=== PATIENT | female | born 1945 | race Caucasian/White ===

== ENCOUNTER → 2016-12-06 | Outpatient (CLI) | payer OTHER ==
[~2016-12-06] MED LIST: APOA1CAP PO; CALC600T9 PO; CALCTAB5 PO; CHOL100010 PO; CHOL2000 PO; CITA40TA12 PO; CYAN10005 PO; GLUCTAB18 PO; KRIL1CAP3 PO; LEVO50TA6 PO; METO50TA7 PO; MULT-506 PO; PANT40TA PO; PROB1TAB16 PO; RIVA1TAB4 PO; VITA400C15 PO; VITATAB19 PO
[2016-12-06 09:36] LABS: BLOOD UREA NITROGEN 22 mg/dl (7-18); BUN/CREATININE RATIO 29.7 (10-20); CALCIUM 8.9 mg/dl (8.5-10.1); CARBON DIOXIDE 28 mmol/L (21-32); CHLORIDE 108 mmol/L (98-107); CREATININE 0.75 mg/dl (0.60-1.20); GLUCOSE 88 mg/dl (70-99); MAGNESIUM 2.2 mg/dl (1.8-2.4); POTASSIUM 4.1 mmol/L (3.5-5.1); SODIUM 143 mmol/L (136-145)
[2016-12-06 09:49] LABS: CHOLESTEROL 231 mg/dl (0-200); CHOLESTEROL/HDL RATIO 3.8; HDL CHOLESTEROL 61 mg/dl; LDL CHOLESTEROL CALCULATED 154 mg/dl; TRIGLYCERIDES 80 mg/dl (0-150); VERY LOW DENSITY LIPOPROT CALC 16 mg/dl
== END | disposition home or self-care (01) ==
LOC: C.LAB1850 07:04
PROVIDERS: ATTEND Internal Medicine
DX: I48.0 Paroxysmal atrial fibrillation (principal); E03.9 Hypothyroidism, unspecified

== ENCOUNTER → 2017-02-27 | Day surgery (SDC) | payer OTHER ==
[2017-02-20 12:18] VITALS: BMI 26.0
[~2017-02-27] VITALS: Ht 157.5 cm; Wt 65.9 kg
[~2017-02-27] MED LIST changes: -CALCTAB5 PO; -CHOL100010 PO; +SODIUM CHLORIDE 0.9% 500ML 500 ML IV ONE; -VITA400C15 PO; -VITATAB19 PO
[2017-02-27 10:18] VITALS: Ht 157.5 cm; Wt 65.9 kg
[2017-02-27 10:27] VITALS: TEMP 36.8
--- NOTE | 2017-02-27 10:55 | Endo History and Physical ---
History & Physical Date of Service: Feb 27, 2017. Chief Complaint: 10 YEAR FOLLOW UP Referring Physician: DR BURLESON History of Present Illness 71 yo CF who presents for screening colonoscopy. Past Surgical History Hx Cardiac Surgery: No Hx Internal Defibrillator: No Hx Pacemaker: No Hx Abdominal Surgery: Yes (SHMUEL BSO) Hx of Implantable Prosthesis: No Hx Post-Op Nausea and Vomiting: Yes Hx Cancer Surgery: No Hx Thoracic Surgery: No Hx Orthopedic: Yes (LT ANKLE FUSION, 2 LT/1 RT RCR, RT KNEE SCOPE) Hx Urinary Tract Surgery: No Family History None Social History Smoking Status: Never Smoker Hx Substance Use: No Hx Alcohol Use: Yes (QUIT 5 YEARS AGO) Allergies Coded Allergies: No Known Allergies (Unverified , 02/27/17) Current Medications Reported Home Medications Medications Dose Route/Sig Max Daily Dose Days Date Category Krill Oil 1 Cap Cap 1 Cap PO QAM 02/20/17 Reported Osteo Bi-Flex Regular Str (Glucosamine-Chondroitin) 1 Tab Tab 1 Tab PO QAM 02/20/17 Reported Calcium + D (Calcium Carbonate-Vitamin D) 1 Tab Tab 1 Tab PO QAM 02/20/17 Reported Probiotic (Probiotic Product) 1 Tab Tab 1 Tab PO QAM 02/20/17 Reported Vitamin D3 (Cholecalciferol) 2,000 Unit Cap 4 Cap PO QAM 02/20/17 Reported Multivitamin (Multivitamins) Tab 1 Tab PO QAM 02/20/17 Reported Xarelto (Rivaroxaban) 20 Mg Tab 20 Mg PO QAM 02/20/17 Reported Toprol-Xl (Metoprolol Succinate) 50 Mg Tabcr 0.5 Tab PO QAM 02/10/16 Reported Levothyroxine Sodium 50 Mcg Tab 1 Tab PO QAM 02/10/16 Reported Celexa (Citalopram Hydrobromide) 40 Mg Tab 40 Mg PO QAM 02/10/16 Reported Vital Signs Weight (Kilograms): 65.91 Height (Feet): 5 Height (Inches): 2 Date Time Temp Pulse Resp B/P (MAP) Pulse Ox O2 Delivery O2 Flow Rate FiO2 02/27/17 10:27 36.8 88 20 139/87 96 Room Air Physical Exam General Appearance: WD/WN, no apparent distress Respiratory/Chest: Auscultation: breath sounds normal Cardiovascular: Heart Auscultation: RRR Abdomen: Bowel Sounds: normal Inspection & Palpation: soft, non-distended, no tenderness, guarding & rebound Assessment and Plan Assessment: 71 yo CF who presents for screening colonoscopy. Plan: Proceed with colonoscopy.
--- NOTE | 2017-02-27 11:25 | Discharge Instructions ---
Endoscopy Patient Instructions Date / Procedure(s) Performed Feb 27, 2017. Colonoscopy Allergy Information Coded Allergies: No Known Allergies (Unverified , 02/27/17) Discharge Date / Findings Feb 27, 2017. Internal hemorrhoids Medication Instructions Stopped Medication(s): XARELTO OK to resume all medications today as prescribed Medications Dose Route/Sig Max Daily Dose Days Date Category Krill Oil 1 Cap Cap 1 Cap PO QAM 02/20/17 Reported Osteo Bi-Flex Regular Str (Glucosamine-Chondroitin) 1 Tab Tab 1 Tab PO QAM 02/20/17 Reported Calcium + D (Calcium Carbonate-Vitamin D) 1 Tab Tab 1 Tab PO QAM 02/20/17 Reported Probiotic (Probiotic Product) 1 Tab Tab 1 Tab PO QAM 02/20/17 Reported Vitamin D3 (Cholecalciferol) 2,000 Unit Cap 4 Cap PO QAM 02/20/17 Reported Multivitamin (Multivitamins) Tab 1 Tab PO QAM 02/20/17 Reported Xarelto (Rivaroxaban) 20 Mg Tab 20 Mg PO QAM 02/20/17 Reported Toprol-Xl (Metoprolol Succinate) 50 Mg Tabcr 0.5 Tab PO QAM 02/10/16 Reported Levothyroxine Sodium 50 Mcg Tab 1 Tab PO QAM 02/10/16 Reported Celexa (Citalopram Hydrobromide) 40 Mg Tab 40 Mg PO QAM 02/10/16 Reported Provider Instructions Activity Restrictions - No exercising or heavy lifting for 24 hours. - Do not drink alcohol the day of the procedure. - Do not drive a car or operate machinery until the day after the procedure. - Do not make any important decisions or sign important papers in 24 hours after the procedure. Following Day: - Return to full activity which may include returning to work/school. Diet Start your diet with liquids and light foods (jello, soup, juice, toast). Then eat your usual diet if not nauseated. Treatment For Common After Affects For mild abdominal pain, bloating, or excessive gas: - Rest - Eat lightly - Lie on right side Follow-Up Information Follow-up with DR BURLESON as scheduled Anesthesia Information What You Should Know You have had a procedure that required some medicine to reduce anxiety and discomfort. This treatment is called moderate sedation. After receiving the treatment, you may be sleepy, but you will be able to breathe on your own. The effects of the treatment may last for several hours. Follow these instructions along with Activity/Diet recommendations noted above: * Do NOT do anything where dizziness or clumsiness would be dangerous. * Rest quietly at home today, then you can be up and about tomorrow. * Have a responsible person stay with you the rest of today. * You may have had an I.V. today. If so, you may take the dressing off later today. Recommendations Call your doctor if: * Trouble breathing * Continuous vomiting for more than 24 hours * Temperature above 101 degrees * Severe abdominal pain or bloating * Pain not relieved by pain medicine ordered * There is increased drainage or redness from any incision * A large amount of rectal bleeding greater than 2-3 tablespoons. (If you had a polyp/s removed or have hemorrhoids, a small amount of blood - from the rectum is to be expected.) * You have any unanswered questions or concerns. IN THE EVENT OF A SERIOUS EMERGENCY, GO TO THE NEAREST EMERGENCY ROOM Your discharge instructions were prepared by provider Grant Ugalde. Patient Instructions Signature Page Abril Dumont Patient (or Guardian) Signature/Date: I have read and understand the instructions given to me by my caregivers. Caregiver/RN/Doctor Signature/Date: The above-named patient and/or guardian has received patient instructions on this date. + Original Patient Signature Page (only) stays with chart. Please make copy for patient.
--- NOTE | 2017-02-27 11:31 | GI REPORT ---
Procedure Date: 02/27/2017 10:48 AM Procedure: Colonoscopy Indications: Screening for colorectal malignant neoplasm Medicines: Monitored Anesthesia Care Complications: No immediate complications. Estimated Blood Loss: Estimated blood loss: none. Procedure: Pre-Anesthesia Assessment: - Prior to the procedure, a History and Physical was performed, and patient medications and allergies were reviewed. The patient's tolerance of previous anesthesia was also reviewed. The risks and benefits of the procedure and the sedation options and risks were discussed with the patient. All questions were answered, and informed consent was obtained. Prior Anticoagulants: The patient has taken Xarelto (rivaroxaban), last dose was 3 days prior to procedure. ASA Grade Assessment: II - A patient with mild systemic disease. After reviewing the risks and benefits, the patient was deemed in satisfactory condition to undergo the procedure. After I obtained informed consent, the scope was passed under direct vision. Throughout the procedure, the patient's blood pressure, pulse, and oxygen saturations were monitored continuously. The scope was introduced through the anus and advanced to the terminal ileum. The colonoscopy was performed without difficulty. The patient tolerated the procedure well. The quality of the bowel preparation was good. The terminal ileum, ileocecal valve, appendiceal orifice, and rectum were photographed. Findings: Non-bleeding internal hemorrhoids were found during retroflexion. The hemorrhoids were small. Impression: - Non-bleeding internal hemorrhoids. - No specimens collected. Recommendation: - Resume previous diet. - Continue present medications. - Repeat colonoscopy in 10 years for surveillance. - Return to primary care physician as previously scheduled. Grant Ugalde DO 02/27/2017 11:31:10 AM This report has been signed electronically. Note Initiated On: 02/27/2017 10:48 AM I attest to the content of the Intraoperative Record and orders documented therein, exceptions below
--- NOTE | 2017-02-27 11:50 | Anesthesiology Progress Note ---
Anesthesia Post Op Note Date & Time Feb 27, 2017 at 11:50 Vital Signs Pain Intensity: 0 Vital Signs Past 12 Hours Date Time Temp Pulse Resp B/P (MAP) Pulse Ox O2 Delivery O2 Flow Rate FiO2 02/27/17 11:40 98 16 109/87 97 Room Air 02/27/17 11:25 96 14 111/70 96 Room Air 02/27/17 10:27 36.8 88 20 139/87 96 Room Air Notes Mental Status: alert / awake / arousable, participated in evaluation Pt Amnestic to Procedure: Yes Nausea / Vomiting: adequately controlled Pain: adequately controlled Airway Patency, RR, SpO2: stable & adequate BP & HR: stable & adequate Hydration State: stable & adequate Anesthetic Complications: no major complications apparent
[2017-02-27 11:55] VITALS: BP 125/88; PULSE 98; O2SAT 96
== END | disposition home or self-care (01) ==
LOC: C.GI 10:07
PROVIDERS: ATTEND Internal Medicine
DX: Z12.11 Encounter for screening for malignant neoplasm of colon (principal); K64.8 Other hemorrhoids; Z90.710 Acquired absence of both cervix and uterus; Z90.722 Acquired absence of ovaries, bilateral; Z90.79 Acquired absence of other genital organ(s)

== ENCOUNTER → 2017-05-22 | Outpatient (CLI) | payer OTHER ==
[~2017-05-22] MED LIST changes: -SODIUM CHLORIDE 0.9% 500ML 500 ML IV ONE
[2017-05-22 09:53] LABS: ALT/SGPT 27 U/L (12-78); BLOOD UREA NITROGEN 12 mg/dl (7-18); BUN/CREATININE RATIO 15.6 (10-20); CALCIUM 8.8 mg/dl (8.5-10.1); CARBON DIOXIDE 28 mmol/L (21-32); CHLORIDE 109 mmol/L (98-107); CHOLESTEROL 73 mg/dl (0-200); CREATININE 0.78 mg/dl (0.60-1.20); GLUCOSE 94 mg/dl (70-99); POTASSIUM 4.1 mmol/L (3.5-5.1); SODIUM 143 mmol/L (136-145); TRIGLYCERIDES 79 mg/dl (0-150); VERY LOW DENSITY LIPOPROT CALC 16 mg/dl
[2017-05-22 10:03] LABS: ALB/GLOB RATIO 1.2 (0.9-2); ALKALINE PHOSPHATASE 84 U/L (45-117); AST/SGOT 24 U/L (15-37); CHOLESTEROL/HDL RATIO 1.4; HDL CHOLESTEROL 54 mg/dl; LDL CHOLESTEROL CALCULATED 3 mg/dl
== END | disposition home or self-care (01) ==
LOC: C.LAB1850 07:00
PROVIDERS: ATTEND Internal Medicine
DX: E03.9 Hypothyroidism, unspecified (principal); Z11.59 Encounter for screening for other viral diseases

== ENCOUNTER → 2017-07-02 | Day surgery (SDC) | payer OTHER ==
[2017-06-28 15:40] VITALS: BMI 26.0
[~2017-07-02] VITALS: Ht 157.5 cm; Wt 65.9 kg
[~2017-07-02] MED LIST changes: +LIDOCAINE HCL 2% 2 ML VIAL (20MG/ML) ONE; +PROPOFOL IV EMULSION 10 MG/ML 20 ML VIAL IV ONE; +SODIUM CHLORIDE 0.9% 500ML 500 ML IV ONE
[2017-07-02 10:37] VITALS: Ht 157.5 cm; Wt 65.9 kg
--- NOTE | 2017-07-02 10:57 | Endo History and Physical ---
History & Physical Date of Service: Jul 02, 2017. Chief Complaint: abdominal pain, epigastric discomfort Referring Physician: Dr. Lozano History of Present Illness 71 yo CF who presents for EGD secondary to epigastric abdominal pain. Past Surgical History Hx Cardiac Surgery: No Hx Internal Defibrillator: No Hx Pacemaker: No Hx Abdominal Surgery: Yes (SHMUEL BSO) Hx of Implantable Prosthesis: No Hx Post-Op Nausea and Vomiting: Yes Hx Cancer Surgery: No Hx Thoracic Surgery: No Hx Orthopedic: Yes (LT ANKLE FUSION, 2 LT/1 RT RCR, RT KNEE SCOPE) Hx Urinary Tract Surgery: No Family History None Social History Smoking Status: Never Smoker Hx Substance Use: No Hx Alcohol Use: Yes (QUIT 5 YEARS AGO) Allergies Coded Allergies: No Known Allergies (Verified , 07/02/17) Current Medications Reported Home Medications Medications Dose Route/Sig Max Daily Dose Days Date Category Prevagen (Apoaequorin) 10 Mg Cap 1 Cap PO QAM 06/28/17 Reported Vitamin B-12 (Cyanocobalamin) 1,000 Mcg Tab 1,000 Mcg PO QAM 06/28/17 Reported Protonix (Pantoprazole Sodium) 40 Mg Tab 40 Mg PO BID 06/28/17 Reported Krill Oil 1 Cap Cap 1 Cap PO QAM 02/20/17 Reported Osteo Bi-Flex Regular Str (Glucosamine-Chondroitin) 1 Tab Tab 1 Tab PO QAM 02/20/17 Reported Calcium + D (Calcium Carbonate-Vitamin D) 1 Tab Tab 1 Tab PO QAM 02/20/17 Reported Probiotic (Probiotic Product) 1 Tab Tab 1 Tab PO QAM 02/20/17 Reported Vitamin D3 (Cholecalciferol) 2,000 Unit Cap 4 Cap PO QAM 02/20/17 Reported Multivitamin (Multivitamins) Tab 1 Tab PO QAM 02/20/17 Reported Xarelto (Rivaroxaban) 20 Mg Tab 20 Mg PO QAM 02/20/17 Reported Toprol-Xl (Metoprolol Succinate) 50 Mg Tabcr 0.5 Tab PO QAM 02/10/16 Reported Levothyroxine Sodium 50 Mcg Tab 1 Tab PO QAM 02/10/16 Reported Celexa (Citalopram Hydrobromide) 40 Mg Tab 40 Mg PO QAM 02/10/16 Reported Vital Signs Weight (Kilograms): 65.91 Height (Feet): 5 Height (Inches): 2 Date Time Temp Pulse Resp B/P (MAP) Pulse Ox O2 Delivery O2 Flow Rate FiO2 07/02/17 10:38 36.6 96 20 103/75 (84) 97 Room Air Physical Exam General Appearance: WD/WN, no apparent distress Respiratory/Chest: Auscultation: breath sounds normal Cardiovascular: Heart Auscultation: RRR Abdomen: Bowel Sounds: normal Inspection & Palpation: soft, non-distended, no tenderness, guarding & rebound Assessment and Plan Assessment: 71 yo CF who presents for EGD secondary to epigastric abdominal pain. Plan: Proceed with colonoscopy.
--- NOTE | 2017-07-02 11:30 | Discharge Instructions ---
Endoscopy Patient Instructions Date / Procedure(s) Performed Jul 02, 2017. EGD Allergy Information Coded Allergies: No Known Allergies (Verified , 07/02/17) Discharge Date / Findings Jul 02, 2017. Gastritis s/p biopsies Hiatal hernia Medication Instructions Stopped Medication(s): Xarelto since 07-01-17 OK to resume all medications today as prescribed Reported Home Medications Medications Dose Route/Sig Max Daily Dose Days Date Category Prevagen (Apoaequorin) 10 Mg Cap 1 Cap PO QAM 06/28/17 Reported Vitamin B-12 (Cyanocobalamin) 1,000 Mcg Tab 1,000 Mcg PO QAM 06/28/17 Reported Protonix (Pantoprazole Sodium) 40 Mg Tab 40 Mg PO BID 06/28/17 Reported Krill Oil 1 Cap Cap 1 Cap PO QAM 02/20/17 Reported Osteo Bi-Flex Regular Str (Glucosamine-Chondroitin) 1 Tab Tab 1 Tab PO QAM 02/20/17 Reported Calcium + D (Calcium Carbonate-Vitamin D) 1 Tab Tab 1 Tab PO QAM 02/20/17 Reported Probiotic (Probiotic Product) 1 Tab Tab 1 Tab PO QAM 02/20/17 Reported Vitamin D3 (Cholecalciferol) 2,000 Unit Cap 4 Cap PO QAM 02/20/17 Reported Multivitamin (Multivitamins) Tab 1 Tab PO QAM 02/20/17 Reported Xarelto (Rivaroxaban) 20 Mg Tab 20 Mg PO QAM 02/20/17 Reported Toprol-Xl (Metoprolol Succinate) 50 Mg Tabcr 0.5 Tab PO QAM 02/10/16 Reported Levothyroxine Sodium 50 Mcg Tab 1 Tab PO QAM 02/10/16 Reported Celexa (Citalopram Hydrobromide) 40 Mg Tab 40 Mg PO QAM 02/10/16 Reported Provider Instructions Activity Restrictions - No exercising or heavy lifting for 24 hours. - Do not drink alcohol the day of the procedure. - Do not drive a car or operate machinery until the day after the procedure. - Do not make any important decisions or sign important papers in 24 hours after the procedure. Following Day: - Return to full activity which may include returning to work/school. Diet Start your diet with liquids and light foods (jello, soup, juice, toast). Then eat your usual diet if not nauseated. Treatment For Common After Affects For mild abdominal pain, bloating, or excessive gas: - Rest - Eat lightly - Lie on right side Follow-Up Information Follow-up with Dr. Lozano as scheduled Anesthesia Information What You Should Know You have had a procedure that required some medicine to reduce anxiety and discomfort. This treatment is called moderate sedation. After receiving the treatment, you may be sleepy, but you will be able to breathe on your own. The effects of the treatment may last for several hours. Follow these instructions along with Activity/Diet recommendations noted above: * Do NOT do anything where dizziness or clumsiness would be dangerous. * Rest quietly at home today, then you can be up and about tomorrow. * Have a responsible person stay with you the rest of today. * You may have had an I.V. today. If so, you may take the dressing off later today. Recommendations Call your doctor if: * Trouble breathing * Continuous vomiting for more than 24 hours * Temperature above 101 degrees * Severe abdominal pain or bloating * Pain not relieved by pain medicine ordered * There is increased drainage or redness from any incision * A large amount of rectal bleeding greater than 2-3 tablespoons. (If you had a polyp/s removed or have hemorrhoids, a small amount of blood - from the rectum is to be expected.) * You have any unanswered questions or concerns. IN THE EVENT OF A SERIOUS EMERGENCY, GO TO THE NEAREST EMERGENCY ROOM Your discharge instructions were prepared by provider Grant Ugalde. Patient Instructions Signature Page Abril Dumont Patient (or Guardian) Signature/Date: I have read and understand the instructions given to me by my caregivers. Caregiver/RN/Doctor Signature/Date: The above-named patient and/or guardian has received patient instructions on this date. + Original Patient Signature Page (only) stays with chart. Please make copy for patient.
--- NOTE | 2017-07-02 11:34 | GI REPORT ---
Procedure Date: 07/02/2017 10:48 AM Procedure: Upper GI endoscopy Indications: Epigastric abdominal pain Medicines: Monitored Anesthesia Care Complications: No immediate complications. Estimated Blood Loss: Estimated blood loss: none. Procedure: Pre-Anesthesia Assessment: - Prior to the procedure, a History and Physical was performed, and patient medications and allergies were reviewed. The patient's tolerance of previous anesthesia was also reviewed. The risks and benefits of the procedure and the sedation options and risks were discussed with the patient. All questions were answered, and informed consent was obtained. Prior Anticoagulants: The patient has taken no previous anticoagulant or antiplatelet agents. ASA Grade Assessment: II - A patient with mild systemic disease. After reviewing the risks and benefits, the patient was deemed in satisfactory condition to undergo the procedure. After obtaining informed consent, the endoscope was passed under direct vision. Throughout the procedure, the patient's blood pressure, pulse, and oxygen saturations were monitored continuously. The scope was introduced through the mouth, and advanced to the second part of duodenum. The upper GI endoscopy was accomplished without difficulty. The patient tolerated the procedure well. Findings: The esophagus was normal. A small hiatus hernia was present. Localized mild inflammation characterized by erythema was found in the gastric antrum. Biopsies were taken with a cold forceps for histology. The examined duodenum was normal. Impression: - Normal esophagus. - Small hiatus hernia. - Gastritis. Biopsied. - Normal examined duodenum. Recommendation: - Resume previous diet. - Continue present medications. - Await pathology results. - Return to GI office as previously scheduled. Grant Ugalde DO 07/02/2017 11:33:56 AM This report has been signed electronically. Note Initiated On: 07/02/2017 10:48 AM I attest to the content of the Intraoperative Record and orders documented therein, exceptions below
--- NOTE | 2017-07-02 11:34 | Anesthesiology Progress Note ---
Anesthesia Post Op Note Date & Time Jul 02, 2017 at 11:33 Vital Signs Pain Intensity: 0 Vital Signs Past 12 Hours Date Time Temp Pulse Resp B/P (MAP) Pulse Ox O2 Delivery O2 Flow Rate FiO2 07/02/17 10:38 36.6 96 20 103/75 (84) 97 Room Air Notes Mental Status: alert / awake / arousable, participated in evaluation Pt Amnestic to Procedure: Yes Nausea / Vomiting: adequately controlled Pain: adequately controlled Airway Patency, RR, SpO2: stable & adequate BP & HR: stable & adequate Hydration State: stable & adequate Anesthetic Complications: no major complications apparent
[2017-07-02 11:56] VITALS: BP 121/91; PULSE 82; O2SAT 98
== END | disposition home or self-care (01) ==
LOC: C.GI 10:21
PROVIDERS: ATTEND Internal Medicine
DX: K29.50 Unspecified chronic gastritis without bleeding (principal); K21.9 Gastro-esophageal reflux disease without esophagitis; M19.90 Unspecified osteoarthritis, unspecified site; K44.9 Diaphragmatic hernia without obstruction or gangrene

== ENCOUNTER 2021-04-08 08:11 | Observation (INO) ==
--- NOTE | 2021-03-14 13:29 | PAT Medication Instructions ---
Medication Instructions Date of Service March 14, 2021 Home Medications Medication Instructions Recorded rivaroxaban 20 mg tablet 20 mg PO QAM #90 tab 03/01/20 naproxen sodium 220 mg capsule 220 mg PO BID PRN #10 cap 06/01/20 pantoprazole 20 mg tablet,delayed 20 mg PO QAM #30 tab 10/11/20 release metoprolol succinate 50 mg See Rx Instructions .ROUTE 11/26/20 tablet,extended release 24 hr .COMPLEX #90 tab Wheeled Walker #1 ea 02/24/21 levothyroxine 50 mcg tablet 50 mcg PO QAM #90 tab 03/02/21 duloxetine 30 mg capsule,delayed 30 mg PO BID #60 cap 03/03/21 release multivitamin 1 tab PO QAM omega-3 acid ethyl esters 1 gram capsule 1 cap PO QAM rivaroxaban 20 mg tablet 20 mg PO QAM biotin 10,000 mcg capsule 10,000 mcg PO QAM cholecalciferol (vitamin D3) 25 mcg (1,000 unit) capsule 10,000 unit PO QAM naproxen sodium 220 mg capsule 220 mg PO BID PRN vitamins A,C,O-mzhy-jllzzc 14,320 unit-226 mg-200 unit capsule 1 cap PO QAM pantoprazole 20 mg tablet,delayed release 20 mg PO QAM metoprolol succinate 50 mg tablet,extended release 24 hr See Rx Instructions .ROUTE .COMPLEX ndguvlgarla-byumtldug-smg C-Mn [Glucosamine Chondroitin MaxStr] 1 cap PO QAM levothyroxine 50 mcg tablet 50 mcg PO QAM turmeric 400 mg PO QAM duloxetine 30 mg capsule,delayed release 30 mg PO BID ASK your surgeon for instructions naproxen sodium 220 mg capsule 220 mg PO BID PRN ASK your prescriber and surgeon rivaroxaban 20 mg tablet 20 mg PO QAM (in order for spinal anesthesia, rivaroxaban needs to be stopped 72 hours/3 days before surgery. Please check if okay with doctor that prescribes this to you) STOP taking 2 weeks before surgery (or as soon as possible if surgery is within 2 weeks) omega-3 acid ethyl esters 1 gram capsule 1 cap PO QAM vitamins A,C,D-joaf-cjpoyd 14,320 unit-226 mg-200 unit capsule 1 cap PO QAM abxkgqxndhf-bqibnjjmg-dyv C-Mn [Glucosamine Chondroitin MaxStr] 1 cap PO QAM turmeric 400 mg PO QAM DO NOT take the morning of surgery multivitamin 1 tab PO QAM biotin 10,000 mcg capsule 10,000 mcg PO QAM cholecalciferol (vitamin D3) 25 mcg (1,000 unit) capsule 10,000 unit PO QAM Take morning of surgery With a small sip of water, OTHERWISE NOTHING TO EAT OR DRINK AFTER MIDNIGHT: pantoprazole 20 mg tablet,delayed release 20 mg PO QAM metoprolol succinate 50 mg tablet,extended release 24 hr See Rx Instructions .ROUTE .COMPLEX levothyroxine 50 mcg tablet 50 mcg PO QAM duloxetine 30 mg capsule,delayed release 30 mg PO BID Take evening before surgery duloxetine 30 mg capsule,delayed release 30 mg PO BID Other Notes If you have any questions please call us at [phone] or [phone] or [phone] or [phone]
--- NOTE | 2021-03-15 13:23 | Anesthesiology Consultation ---
Date of Service March 15, 2021 Assessment & Plan (1) Encounter for pre-operative examination: - Abnormal CXR: Preop CXR notes questionable focal density seen projecting to the left costophrenic angle most likely represent nipple shadow however intrapulmonary lesion cannot be completely ruled out. Radiology recommends further evaluation with PA and lateral chest radiograph with nipple markings. Awaiting PCP response. - COVID screening: Per assessment on 03/15: Travel screen negative, no known COVID-19 positive contacts or current COVID-19 related symptoms. Patient vac cinated. Surgeon arranging preop COVID testing. Awaiting results. - Xarelto instructions: patient made aware that in order for spinal anesthesia, Xarelto needs to be held 72 hours/3 days prior to surgery. Patient voiced understanding/will check if okay with prescriber. - Cardiology office visit (12/08/20): "The patient is stable from a cardiovascular standpoint. She demonstrates excellent control of her blood pressure and HDL cholesterol. LDL cholesterol is borderline elevated. As above, patient is contemplating knee replacement surgery. She demonstrates excellent functional status and has no limiting cardiac symptoms. She is an acceptable cardiac risk for knee replacement surgery without further testing." Chart Review Chart Review: Patient seen in Pre Admission Testing Teaching & Discussion Pre-Anesthesia Teaching/Discussion Notes: Instructed NPO after midnight before surgery,except medications with 15 cc of water. Medication instructions provided according to the PAT guidelines. History Surgery Operation Date: 04/08/21 09:05 Proposed Procedures p Right Total Knee Replacement - Krishna Doe MD Height/Weight Height: 5 ft 2 in Weight: 58.7 kg Allergies Allergy/AdvReac Type Severity Reaction Status Date / Time No Known Drug Allergies Allergy Verified 03/02/21 08:00 Medications Home Medications Medication Instructions Recorded Confirmed Last Taken multivitamin 1 tab PO QAM 05/19/19 03/02/21 10/27/19 09:00 omega-3 acid ethyl esters 1 gram 1 cap PO QAM cap 05/19/19 03/02/21 10/27/19 09:00 capsule rivaroxaban 20 mg tablet 20 mg PO QAM #90 tab 03/01/20 03/02/21 Unknown biotin 10,000 mcg capsule 10,000 mcg PO QAM 06/01/20 03/02/21 Unknown cholecalciferol (vitamin D3) 25 10,000 unit PO QAM cap 06/01/20 03/02/21 Unknown mcg (1,000 unit) capsule naproxen sodium 220 mg capsule 220 mg PO BID PRN #10 cap 06/01/20 03/02/21 Unknown vitamins A,C,B-tjwb-njrcxl 14,320 1 cap PO QAM 06/01/20 03/02/21 Unknown unit-226 mg-200 unit capsule pantoprazole 20 mg tablet,delayed 20 mg PO QAM #30 tab 10/11/20 03/02/21 Unknown release metoprolol succinate 50 mg See Rx Instructions .ROUTE 11/26/20 03/02/21 Unknown tablet,extended release 24 hr .COMPLEX #90 tab Wheeled Walker #1 ea 02/24/21 03/02/21 Unknown pwaiphmhpun-ywkdultxr-zhq C-Mn 1 cap PO QAM 03/02/21 03/02/21 Unknown [Glucosamine Chondroitin MaxStr] levothyroxine 50 mcg tablet 50 mcg PO QAM #90 tab 03/02/21 Unknown turmeric 400 mg PO QAM 03/02/21 03/02/21 Unknown duloxetine 30 mg capsule,delayed 30 mg PO BID #60 cap 03/03/21 Unknown release Past Medical History Medical History Anxiety Depression GERD (gastroesophageal reflux disease) Hiatal hernia Hyperlipidemia No meds Hypothyroidism Internal hemorrhoids Left sided sciatica Neck pain Chronic Osteoarthritis Permanent atrial fibrillation on Xarelto, follows with [facility] cardiology Sensorineural hearing loss of both ears Stress incontinence, female Exercise / Class Metabolic Activity III < 4 Walking/Shop/Light housework (one FS (no chest pain, occasional SOB), daily stationary bike without CP/SOB) Past Family History Family History Brother Bladder cancer Grandmother (Maternal) Breast cancer Mother Cardiac disorder Other No family history of adverse response to anesthesia Denies family history of Ovarian cancer Prostate cancer Myocardial infarction Colorectal cancer Past Surgical History Surgical History Breast enlargement History of ankle surgery Left ankle fusion History of bilateral cataract extraction History of colonoscopy History of esophagogastroduodenoscopy (EGD) History of foot surgery Bone spur removal/plantar fascitis sx History of repair of left rotator cuff x2 History of repair of right rotator cuff History of total hysterectomy with bilateral salpingo-oophorectomy (BSO) History of wisdom tooth extraction S/P laparoscopy Past Anesthesia History No Hx of Anesthesia Complications (except PONV) and No Family Hx of Anesthesia Complications History of PONV No Hx of PONV (occasional) and Hx of Motion Sickness (+ cars) Social History Smoking Status: Former smoker Do You Dip or Chew Tobacco: No Smoking End Date: Quit 30 years ago Hx Alcohol Use: No Hx Substance Use: No substance use type: does not use Review of Systems Patient denies chest pain, shortness of breath, fever, chills, cough, wheezing, palpitations. Physical Exam Vital Signs VITALS BP 100/66 (per patient, BP typically low-normal range) P 82 TEMP 98.5 SP02 98%RA RESP 16 PHYSICAL Full cervical extension range of motion. Full TMJ range of motion. TMD 3 finger breaths Mallampati Score 3 Dentition: intact, crowns (molars) Lungs: clear throughout to auscultation Cardiac: regular rate, irregularly irregular, no murmurs noted Spine: normal Carotid arteries: negative bruit Extremities: no edema Lab Results Anesthesia Preop Results Results Anesthesia Widget: WBC 5.24 K/uL (4.8-10.8) 03/15/21 Hgb 13.3 g/dL (12.0-16.0) 03/15/21 Hct 40.6 % (37-47) 03/15/21 Plt 217 K/uL (130-400) 03/15/21 Na 140 mmol/L (136-145) 03/15/21 K 4.0 mmol/L (3.5-5.1) 03/15/21 Cl 109 mmol/L (98-107) H 03/15/21 CO2 29 mmol/L (21-32) 03/15/21 BUN 21 mg/dl (7-18) H 03/15/21 Creat 0.74 mg/dl (0.6-1.2) 03/15/21 Glucose Level 102 mg/dl (70-99) H 03/15/21 PT 11.6 Seconds (9.0-12.0) 03/15/21 PTT 32.4 Seconds (21.0-31.0) H 06/22/21 INR 1.2 (0.9-1.1) H 03/15/21 Blood Type O Positive 03/15/21 Antibody Screen NEGATIVE 03/15/21 Testing Electrocardiogram Date: 03/15/21 Atrial fibrillation 97 bpm. Rightward axis. Nonspecific T wave abnormality. Poor data quality.* Chest X-Ray Date: 03/15/21 No large infiltrates or consolidative lesions. Questionable focal density seen projecting to the left costophrenic angle most likely represent nipple shadow however intrapulmonary lesion cannot be completely ruled out. Further evaluation with PA and lateral chest radiograph with nipple markings is suggested. Echocardiogram Date: 02/19/15 EF 55-60%. No RWMA. Mild biatrial dilation. Mild MR/TR. Mild LAD. Mild RVD.
--- NOTE | 2021-04-02 12:46 | History and Physical Report ---
DATE OF ADMISSION: 04/08/2021 CHIEF COMPLAINT: Bilateral knee pain, discomfort, right side greater than the left. HISTORY OF PRESENT ILLNESS: The patient is a 75-year-old female from [place] who presents for edin atment of her knees. She has got a 4-5 year history of increasing bilateral knee pain and discomfort , right side worse than the left. She has been through extensive conservative treatment, treated by Dr. Mcintosh at [facility]. She has had steroid shots as well as gel shots, which have become less successful over time. She describes global pain. She is not able to maintain an activit y level that she likes due to the pain and stiffness. She is hoping to get both knees fixed. Of note, the patient does have a history of some sciatica on the left side. She continues to be both ered by buttock and leg pain, and takes Aleve with minimal relief. PAST MEDICAL HISTORY: 1. Atrial fibrillation. 2. Hypothyroidism. 3. Lumbar spondylosis/sciatica. PREVIOUS SURGERIES: Include, 1. Ankle fusion. 2. Hysterectomy. 3. Rotator cuff repair x3. ALLERGIES: None. CURRENT MEDICATIONS: Include, 1. Naproxen. 2. Multivitamin. 3. Metoprolol. 4. Levothyroxine. 5. Duloxetine. 6. Vitamin D3. 7. Biotin. 8. Xarelto 20 mg daily. 9. Multivitamin. 10. Pantoprazole. 11. [place]-3. SOCIAL HISTORY: A 75-year-old female. She is retired and . Three children. Does not drink. No significant smoking history. FAMILY HISTORY: Significant for heart disease. REVIEW OF SYSTEMS: Significant for atrial fibrillation, on Xarelto. No chest pain or shortness of b reath. No history of DVT or PE. No known bleeding problems. PHYSICAL EXAMINATION: GENERAL: Shows a pleasant middle-aged female, who looks to be in reasonably good health. HEENT: Benign. NECK: Supple, no lymphadenopathy. LUNGS: Clear to auscultation. HEART: Has a regular rate and rhythm. ABDOMEN: Soft, nontender, nondistended. EXTREMITIES: Grossly neurovascularly intact except as follows. Examination of her knees reveals the patient ambulates with a little bit of a limp. Examination of the right knee reveals varus alignmen t to her knee with a varus thrust with weightbearing. She has got bony hypertrophy medially and tend erness over the medial joint line. Small knee effusion. Range of motion about 10 degrees short of f ull extension to 115 degrees of flexion. There is no instability. Examination of the left knee reve als a similar varus deformity. Small knee effusion. Range of motion 5-125. No instability. No jurgen n with hip motion. X-RAYS: X-rays of both knees reveal advanced bilateral knee DJD. She has complete loss of the media l joint space in both knees. The right knee is a little bit worse than the left. She has got some c hondrocalcinosis and subchondral sclerosis as well. ASSESSMENT: A 75-year-old female with advanced bilateral knee degenerative joint disease. She has f lamberto conservative treatment and would like to have both knees replaced. With her heart history, I do not think she is a good person to do bilateral knee replacements. We will schedule her for right one which hurts the most, and if she does well from this and recovers well, we will consider the lef t one several months down the road. I did tell her this is not going to help her underlying sciatica , and she is aware of this. PLAN: We are going to proceed with a right total knee replacement. The risks and benefits of this p rocedure were explained to the patient including but not limited to DVT, PE, , infection, neurol ogical injury, vascular injury, bleeding problem, pain, limited range of motion, stiffness, failure t o relieve her symptoms, incomplete relief of symptoms, need for further surgery in the future, fractu re, leg length inequality, nerve palsy, etc. The patient understands and desires to proceed. Inform ed consent was obtained. She apparently does get pretty sick with anesthesia. We will likely give her some Decadron postopera tively and use any medicines to assist with that as well. She knows to hold her Xarelto 3 days preop . She is planning to be discharged to home using [facility] program. Job ID: [id number]
[~2021-04-08 08:11] MED LIST changes: +ACETAMINOPHEN 500 MG TAB PO SCH; -APOA1CAP PO; +BUPIVACAINE 0.5 % 5 MG/1 ML PF 10ML VIAL ONE; +BUPIVACAINE LIPOSOME/PF 266 MG, BUPIVACAINE/EPINEPHRINE 50 ML, SODIUM CHLORIDE 0.9% 30 ... INFIL SCH; -CALC600T9 PO; -CHOL2000 PO; -CITA40TA12 PO; -CYAN10005 PO; +FAMOTIDINE 20 MG TAB PO SCH; +GABAPENTIN 300 MG CAP PO SCH; -GLUCTAB18 PO; -KRIL1CAP3 PO; -LEVO50TA6 PO; -LIDOCAINE HCL 2% 2 ML VIAL (20MG/ML) ONE; +LR 500ML BOLUS, THEN 15ML/HR IV SCH; +LR 60ML/HR IV SCH; -METO50TA7 PO; -MULT-506 PO; -PANT40TA PO; -PROB1TAB16 PO; -PROPOFOL IV EMULSION 10 MG/ML 20 ML VIAL IV ONE; -RIVA1TAB4 PO; +ROPIVACAINE 0.5% 5 MG/ML 30 ML VIAL ONE; -SODIUM CHLORIDE 0.9% 500ML 500 ML IV ONE; +TRANEXAMIC ACID 1,000 MG **IV Intra-op IV SCH; +TRANEXAMIC ACID 1,000 MG **IV Pre-op IV SCH; +ceFAZolin 2000MG 2,000 MG/15 ML SYR IV SCH
--- NOTE | 2021-04-08 08:59 | History & Physical Bridge Note ---
Date of Service April 08, 2021 History & Physical Bridge Note I have examined the patient, reviewed the History & Physical and in the interval since the performance of the History & Physical I have noted the following changes of clinical significance: no changes noted
[2021-04-08] MEDS ORDERED: MIDAZOLAM HCL 1 MG/ML 2ML VIAL ONE (10:00)
[2021-04-08] MEDS ORDERED: PROPOFOL IV EMULSION 10 MG/ML 20 ML VIAL IV ONE ×2 (10:00→12:59)
[2021-04-08] MEDS ORDERED: LIDOCAINE 2% 2 ML VIAL/AMP(20MG/ML) INFIL ONE ×2 (10:00→12:59)
[2021-04-08] MEDS ORDERED: fentaNYL citrate 100 MCG/2 ML VIAL ONE (10:00)
[2021-04-08] MEDS ORDERED: ONDANSETRON INJ 2 MG/ML 2 ML VIAL IV PRN ×2 (10:46→15:22)
[2021-04-08] MEDS ORDERED: ATROPINE SULFATE 0.1 MG/ML 10ML SYR IV PRN (10:46)
[2021-04-08] MEDS ORDERED: ePHEDrine sulfate 50 MG/ML AMP IV PRN (10:46)
[2021-04-08] MEDS ORDERED: fentaNYL citrate 100 MCG/2 ML VIAL IV PRN (10:46)
[2021-04-08] MEDS ORDERED: HYDROmorphone INJ 2 MG/ML SYR/VIAL IV PRN (10:46)
[2021-04-08] MEDS ORDERED: SODIUM CHLORIDE 0.9% PF 50 ML VIAL ONE (11:07)
[2021-04-08] MEDS ORDERED: BUPIVACAINE LIPOSOME 1.3% 266 MG/20 ML VIAL ONE (11:07)
[2021-04-08] MEDS ORDERED: BUPIVACAINE 0.25% 30 ML VIAL ONE (11:07)
[2021-04-08] MEDS ORDERED: ONDANSETRON INJ 2 MG/ML 2 ML VIAL ONE (11:37)
[2021-04-08] MEDS ORDERED: DEXAMETHASONE SOD INJ 4 MG/ML VIAL ONE (11:37)
--- NOTE | 2021-04-08 13:16 | Operative Report ---
Post Operative Report Pre & Post Diagnosis Operation Date: 04/08/21 10:40 Pre-Op Diagnosis: Right knee degenerative joint disease Post-Op Diagnosis: Right knee degenerative joint disease I identified the patient and participated in the time-out.: Yes Procedure Operation Date: 04/08/21 10:40 Actual Procedures p Right Total Knee Replacement(Right) - Krishna Doe MD Surgeon Krishna Doe MD Qa Engineer NEY Zhang Estimated Blood Loss 50 Findings Consistent with Post-Op Diagnosis Operative findings revealed advanced right knee DJD. She had extensive grade 4 [id number] disease of the medial compartment. Less severe but some focal grade 4 changes of the patellofemoral compartment as well as the lateral compartment. Moderate-sized joint effusion. Fixed varus deformity to her knee. Fluids 600 cc. Specimens Right knee sent for pathology. Drains None Anesthesia Type Spinal MAC Complications none None Indications Patient is a 75-year-old female said a long history of bilateral knee pain discomfort describes gotten worse over time. The right knee is bothering more than the left. She failed all conservative measures and elected proceed with right total knee arthroplasty. Description of Procedure PostOperative implants consist of: 1. Biomet Vanguard size 60 right posterior stabilized femoral component. 2. Biomet size 63 tibial tray. 3. Stabilized polyethylene insert. 4. 28 x 8 all polypatella. The patient was taken to the operating, identified, and placed on the operating table supine position with all contractors were appropriately padded. IV antibiotics tried by anesthesia team. Spinal anesthetic and abductor canal block had been provided in the holding area. Pryor catheter was placed in sterile fashion. A right thigh turn was then placed in the right lower extremities and prepped and draped in usual sterile fashion. The right leg was elevated exsanguinated with use of an Esmarch and tourniquet placed at 300 mmHg. An anterior approach to the right knee was then performed through longitudinal incision centered over the patella. Sharp dissection was got through subcutaneous tissue down the extensor mechanism. A medial parapatellar arthrotomy incision was made. Some subperiosteal dissection was carried out medially. The fat pad was resected from each patella tendon. Lateral patellofemoral ligament was released. Patella was subluxated laterally and the knee was flexed. The osteophytes were taken off distal femur. The ACL and PCL were then released from distal femur and the tibia subluxated anteriorly. The external tibial alignment jig was then placed in the interface the tibia and adjusted 14 mm medially. Proximal tibial cut was made essentially flush with the most deficient aspect of the medial tibial plateau. Some osteophytes were taken off medially and posterior medially. The tibia sized to a size 63. Attention drawn the femur. The distal femur during the sharp drill bit intramedullary canal was suction. A right 5 degree valgus cutting guide was placed. Distal femoral cutting block was pinned in place. Distal femoral cut was made. No additional distal femur was resected. The femur was then sized to a size 60. The AP cutting block was pinned parallel to the epicondylar axis which was 3 degrees of external rotation. The anterior cut, anterior chamfer, posterior cut, posterior chamfer cuts were made. The box cutting guide was placed in just slight lateral box cut was made. The knee was flexed. The remnants of the medial and lateral menisci were excised. The osteophytes were taken off the posterior aspect of femur. A trial femoral component was placed. The tibial tray was pinned in maximum external rotation and the drill and stem punch used to create defect in proximal tibia for the tibial tray. Knee was then trialed and the 10 mm insert fit most appropriately. Attention drawn the patella. Patella was cleaned of all soft tissues. Patella thickness measured 21 mm in thickness was cut down to 13. Was sized to a size 28 patella. The lug holes were drilled for the 28 patella. The lateral osteophyte was removed. Patella button was placed. Knee was taken through range of motion and the patella tracked nicely with no thumbs test. Attention drawn to placing permanent components. Nupathe all trial components were removed. A bone plug was placed in the distal femur limit blood loss. A double batch [place] G cement was mixed. Biomet Vanguard size 60 right posterior stabilized femoral component, size 63 tibial tray, 10 mm posterior stabilized polyethylene insert, 28 x 8 all polypatella then cemented in place. The knee was brought out into full extension total cement hardened. Final cement check was then performed. Pericapsular tissues were injected with total 100 cc of combination of 20 cc of Exparel, 30 cc normal saline, 50 cc of quarter percent Marcaine with epinephrine. Patient did receive 1 g tranexamic acid. The tourniquet was then let down for final turn time 57 minutes. Hemostasis assured use electrocautery. The extensor mechanism closed with combination 1 PDS suture #1 Vicryl suture in [id number] fashion for the extensor mechanism checked found to be intact and subcutaneous tissue then closed with 2 Dexon suture in a buried interrupted fashion skin was closed skin sivakumar. Leg was then cleaned dried a sterile dressing was Xeroform, 4 x 4's, sterile cast padding, Anurag bandage were applied. Patient then transferred to the recovery room in stable condition. Patient tolerated the procedure well and there were no complications. Riaz Zhang, my physician psychiatric nursing assistant, was present for the entire procedure. His assistance was essential and required for appropriate patient positioning, prepping and draping, surgical exposure, performing the technical details of the operation, placement the implants, closure of the wound, and placement of the sterile bandage. I attest to the content of the Intraoperative Record and any orders documented therein. Any exceptions are noted below.
--- NOTE | 2021-04-08 14:01 | Anesthesiology Progress Note ---
Date of Service April 08, 2021 Anesthesia Post Procedure Vital Signs Vital Signs: Temp Pulse Pulse Resp BP Pulse Ox 04/08/21 13:55 36.9 C 87 21 128/90 96 04/08/21 13:45 85 21 125/80 92 04/08/21 13:35 77 19 130/88 93 04/08/21 13:25 90 14 128/85 97 04/08/21 13:15 94 H 23 117/88 99 04/08/21 13:08 36.7 C 87 18 114/78 95 04/08/21 09:25 89 18 132/98 97 Pain Intensity Neck: Pain Intensity: 2 Left Buttock: Pain Intensity: 0 Transfer of Care Handoff Completed per policy Notes Mental Status: alert / awake / arousable and participated in evaluation Patient Amnestic to Procedure: Yes Nausea / Vomiting: adequately controlled Pain: adequately controlled Airway Patency, RR, SpO2: stable & adequate BP & HR: stable & adequate Hydration State: stable & adequate Neuraxial Anesthesia: was administered and sensory block is resolving Anesthetic Complications: no major complications apparent
--- NOTE | 2021-04-08 14:29 | XRay Report ---
XR knee RT 1 or 2V routine CLINICAL HISTORY: Surgical Post Op COMPARISON: Right knee radiographs February 24, 2021. FINDINGS: Alignment of the total right knee arthroplasty is anatomic. There is no periprosthetic fra cture or unexpected radiopaque foreign body. There are skin sivakumar. IMPRESSION: Expected findings following total right knee arthroplasty. ACT 112: Negative or not required by law. Electronically signed by: Sergio Dover M.D. 04/08/2021 2:28 PM
[2021-04-08] MEDS ORDERED: ROPIVACAINE 0.5% 5 MG/ML 30 ML VIAL ONE (15:09)
[2021-04-08] MEDS ORDERED: METOCLOPRAMIDE HCL INJ 5 MG/ML 2 ML VIAL IV PRN (15:22)
[2021-04-08] MEDS ORDERED: bisacodyL 10 MG SUPP PR PRN (15:22)
[2021-04-08] MEDS ORDERED: MAGNESIUM HYDROXIDE SUSP 30 ML UDC PO PRN (15:22)
[2021-04-08] MEDS ORDERED: HYDROmorphone INJ 0.5 MG/0.5 ML SYR IV PRN (15:22)
[2021-04-08] MEDS ORDERED: NALOXONE HCL 0.4 MG/1 ML VIAL/CARP IV PRN (15:22)
[2021-04-08] MEDS ORDERED: ALUMINUM/MAGNESIUM SUSP 30 ML UDC PO PRN (15:22)
[2021-04-08] MEDS: SODIUM CHLORIDE 0.9% 1000ML 1,000 ML IV SCH (17:36)
[2021-04-08] MEDS: KETOROLAC TROMETHAMINE 15 MG/ML VIAL IV SCH ×2 (17:38→21:31)
[2021-04-08] MEDS: ASCORBIC ACID 500 MG TAB PO SCH (17:38)
[2021-04-08] MEDS: ACETAMINOPHEN 500 MG TAB PO SCH ×2 (17:38→21:30)
[2021-04-08] MEDS: ceFAZolin 1000MG 1,000 MG/7.5 ML SYR IV SCH (18:35)
[2021-04-08] MEDS ORDERED: TRANEXAMIC ACID / 0.7% NACL 1,000 MG/100 ML BAG IV SCH (19:15)
[2021-04-08] MEDS: DOCUSATE SODIUM 100 MG CAP PO SCH (20:26)
[2021-04-08] MEDS: traMADol HCL 50 MG TABLET PO PRN (20:27)
[2021-04-08] MEDS ORDERED: SENNA 8.6 MG TAB PO SCH (21:00)
[2021-04-08] MEDS ORDERED: MELATONIN 3 MG TAB PO PRN (23:06)
[2021-04-09] MEDS: ceFAZolin 1000MG 1,000 MG/7.5 ML SYR IV SCH (03:02)
[2021-04-09] MEDS: traMADol HCL 50 MG TABLET PO PRN (03:02)
[2021-04-09] MEDS: KETOROLAC TROMETHAMINE 15 MG/ML VIAL IV SCH ×2 (03:02→09:52)
[2021-04-09] MEDS: SODIUM CHLORIDE 0.9% 1000ML 1,000 ML IV SCH (03:27)
[2021-04-09] MEDS: ACETAMINOPHEN 500 MG TAB PO SCH (05:37)
[2021-04-09 06:28] LABS: Hematocrit (blood only) 36.6 % (37-47); Hemoglobin 11.9 g/dL (12.0-16.0); Mean Corpuscular Hemoglobin 30.3 pg (25-34); Mean Corpuscular Hgb Conc 32.5 g/dL (32-36); Mean Corpuscular Volume 93.1 fL (80-100); Mean Platelet Volume 9.8 fL (7.4-10.4); Platelet Count 207 K/uL (130-400); RDW Coefficient of Variation 13.8 % (11.5-14.5); RDW Standard Deviation 47.4 fL (36.4-46.3); Red Blood Count 3.93 M/uL (4.2-5.4); White Blood Count 11.16 K/uL (4.8-10.8)
[2021-04-09] MEDS ORDERED: LEVOTHYROXINE SODIUM 50 MCG TABLET PO SCH (06:30)
[2021-04-09 07:03] LABS: BUN Creatinine Ratio 25.5 (10-20); Calcium 8.4 mg/dl (8.5-10.1); Creatinine Clr Calc Pharmacy 50.6 ml/min; Est GFR (African American) 88.9 ml/min; Est GFR (Non-African American) 76.7 ml/min
[2021-04-09] MEDS ORDERED: dexAMETHasone 10 MG in SYRINGE 0 ML IV SCH (08:00)
[2021-04-09] MEDS ORDERED: CHOLECALCIFEROL 1,000 UNITS 25 MCG TAB PO SCH (09:00)
[2021-04-09] MEDS ORDERED: PANTOprazole 40 MG TAB PO SCH (09:00)
[2021-04-09] MEDS ORDERED: NON-FORMULARY MEDICATION (Turmeric 400 mg Capsule) PO SCH (09:00)
[2021-04-09] MEDS ORDERED: OMEGA-3 (PURIFIED FISH OIL) 1 GM CAP PO SCH (09:00)
[2021-04-09] MEDS ORDERED: CEROVITE ADV FORMULA TAB PO SCH (09:00)
[2021-04-09] MEDS ORDERED: METOPROLOL SUCC 50MG EXT REL TAB PO SCH (09:00)
[2021-04-09] MEDS ORDERED: MULTIVITAMIN TAB PO SCH (09:00)
--- NOTE | 2021-04-09 09:17 | Progress Notes ---
DATE OF SERVICE: 04/09/2021. SUBJECTIVE: A 75-year-old female postop day 1 from a right knee replacement. She is doing well. Do ing better than expected. The pain has not been too bad. No chest pain or shortness of breath. Not feeling dizzy or lightheaded. OBJECTIVE: VITAL SIGNS: Temperature is 36.9. Vital signs stable. PHYSICAL EXAMINATION: GENERAL: Shows a pleasant middle-aged female. Sitting on bed looks quite comfortable. LUNGS: Clear to auscultation. HEART: Regular rate and rhythm. ABDOMEN: Soft, nontender, nondistended. EXTREMITIES: Grossly neurovascularly intact except as follows. Examination of the right leg reveals the dressing to be clean, dry and intact. She can do a straight leg raise. She can dorsiflex and plantarflex her foot appropriately. She is neurologically intact. LABORATORY DATA: Hemoglobin 11.9. Hematocrit 36.6. White cell count 11.16. Electrolytes are stabl e. ASSESSMENT: A 75-year-old white female postop day 1 from right knee replacement, doing pretty well. Pain has been controlled. She is neurologically intact. PLAN: 1. DVT prophylaxis including thigh-high TEDs, SCDs and we will start her back on her Xarelto today. We will start at a prophylactic dose, then when she is discharged, she can go back to regular dose. 2. PT, OT, weightbear as tolerated. Right total knee protocol. 3. Pain control, doing pretty well with current pain regimen. 4. Disposition: Plan is to discharge her to home with some home health likely later today. Job ID: [id number]
[2021-04-09] MEDS: DOCUSATE SODIUM 100 MG CAP PO SCH (09:35)
[2021-04-09] MEDS: ASCORBIC ACID 500 MG TAB PO SCH (09:46)
[2021-04-09] MEDS ORDERED: RIVAROXABAN 10 MG TABLET PO SCH (14:00)
--- NOTE | 2021-04-12 06:34 | Discharge Summary ---
Date of Service April 12, 2021 Discharge Data Procedures Performed Operation Date: 04/08/21 10:40 Actual Procedures p Right Total Knee Replacement(Right) - Krishna Doe MD Hospital Course (1) Status post total right knee replacement: This is a 75 year old patient admitted on 04/08/21 and underwent total knee arthroplasty. She tolerated the procedure well and there were no complications. Transferred to the PACU post op and later to the orthopedic floor for further care. She was given ancef for antibiotic prophylaxis. She was also given REY stockings, SCDs, and xarelto for DVT prophylaxis. Hemoglobin, hematocrit, and vital signs were monitored during her hospital stay and remained stable. Did not require any blood transfusions. There were no complications during her hospital stay. By post op day #1 the patient was tolerating a regular diet, pain was reasonably controlled with oral pain medicine, and she was participating in physical therapy. On post op day #1 the patient was discharged home and set up with home health care. She was given printed discharge instructions including prescriptions for extra strength tylenol and tramadol. Continue physical therap y, weight bearing as tolerated. Continue REY stockings. Follow up approximately 2 weeks post op or sooner if there are problems or concerns. Coding Level of Care Code None Diagnoses Status post total right knee replacement Z96.651
== END 2021-04-09 12:17 | disposition home health service (06) ==
LOC: ASU 08:11 → 3E 08:11

== ENCOUNTER 2021-07-01 12:31 | Inpatient (IN) ==
[2021-07-01] MEDS ORDERED: ACETAMINOPHEN 325 MG TAB PO PRN (13:15)
--- NOTE | 2021-07-01 13:52 | History & Physical Report ---
Date of Service July 01, 2021 Assessment & Plan (1) Infection of total knee replacement: She has an infected right total knee arthroplasty about 3 months out from surgery. She was doing quite well remarkably and her symptoms only been going on for 2 to 3 days. We talked about treatment options including irrigation debridement and polyethylene exchange versus resection arthroplasty and placement of antibiotic spacer and subsequent reimplantation. After extensive discussion she would like to proceed with a I&D and polyexchange I plan exchange if possible. She did state that if it needs to be removed that we should proceed along that course if I felt necessary. We can proceed with irrigation debridement and polyethylene exchange. If we get and then the implants are loose there is severe bone involvement we will proceed with resection arthroplasty. The risks med this procedure explained the patient will be not limited to DVT PE infection neurological injury vascular bleeding problems etc. The patient understands and desires to proceed. I did tell her about a 50% chance that we can clear this with this procedure. Some of this depends on the bacteria present and we do not have that available. We may need to do some long-term antibiotic suppression as well. There is a hospital get appropriate labs make sure she is typed and screened and proceed with surgery tomorrow. History of Present Illness Chief Complaint: . Acute right knee pain discomfort and swelling after a right total knee replacement done 3 months ago. Primary Care Provider: Brian Marcelo MD . Patient is a 75-year-old female whose had a long history of bilateral knee pain discomfort right side greater than left. She is failed all conservative treatment and underwent a right knee replacement just about 3 months ago. She did quite well and progressed in therapy quite well and is back to essentially normal activities about 6 to 8 weeks out from surgery. She has been very active and no injuries. On Sunday evening she was talking on the phone and felt her knee started to swell up and get more painful. The knee became more painful and discomfort the next 2 days and she presented the clinic just yesterday with swelling. She is on Xarelto. There was some concern of a hemarthrosis. We aspirated her knee and sent off for pathology and it showed 95,000 white cells with majority inflammatory cells. The Gram stain suggested some gram-positive cocci. Crystal analysis is negative. She is indicated for irrigation debridement. She was doing quite well until just earlier this week. No fevers. She is not feeling ill. Her knee is quite a bit more painful and it has been the entire time. She got minimal relief from the aspiration. Jaron, she is gotten infected the knee acutely. She presents for surgical treatment at this time. Allergies Allergy/AdvReac Type Severity Reaction Status Date / Time No Known Drug Allergies Allergy Unknown Verified 06/06/21 12:21 Home Medications Medication Instructions Recorded Confirmed Type omega-3 acid ethyl esters 1 gram 1 cap PO QAM cap 05/19/19 06/06/21 History capsule biotin 10,000 mcg capsule 10,000 mcg PO QAM 06/01/20 06/06/21 History cholecalciferol (vitamin D3) 25 10,000 unit PO QAM cap 06/01/20 06/06/21 History mcg (1,000 unit) capsule vitamins A,C,S-ovop-mcwtie 14,320 1 cap PO QAM 06/01/20 06/06/21 History unit-226 mg-200 unit capsule (PreserVision AREDS) metoprolol succinate 50 mg See Rx Instructions .ROUTE 11/26/20 06/06/21 Rx tablet,extended release 24 hr .COMPLEX #90 tab levothyroxine 50 mcg tablet 50 mcg PO QAM #90 tab 03/02/21 06/06/21 Rx pantoprazole 20 mg tablet,delayed 20 mg PO QAM #30 tab 04/19/21 06/06/21 Rx release rivaroxaban 20 mg tablet (Xarelto) 20 mg PO QAM #90 tab 05/02/21 06/06/21 Rx duloxetine 30 mg capsule,delayed 30 mg PO BID #60 cap 05/24/21 06/06/21 Rx release Past Med/Surg History Medical History Anxiety Depression GERD (gastroesophageal reflux disease) Hiatal hernia Hyperlipidemia No meds Hypothyroidism Internal hemorrhoids Left knee DJD Left sided sciatica Neck pain Chronic Osteoarthritis Permanent atrial fibrillation on Xarelto, follows with [facility] cardiology Sensorineural hearing loss of both ears Stress incontinence, female Surgical History Breast enlargement History of ankle surgery Left ankle fusion History of bilateral cataract extraction History of colonoscopy History of esophagogastroduodenoscopy (EGD) History of foot surgery Bone spur removal/plantar fascitis sx History of repair of left rotator cuff x2 History of repair of right rotator cuff History of total hysterectomy with bilateral salpingo-oophorectomy (BSO) History of wisdom tooth extraction S/P laparoscopy Family History Brother Bladder cancer Grandmother (Maternal) Breast cancer Mother Cardiac disorder Other No family history of adverse response to anesthesia Denies family history of Ovarian cancer Prostate cancer Myocardial infarction Colorectal cancer Social History Smoking Status: Never smoker Second Hand Exposure: No; Hx Alcohol Use: No Hx Substance Use: No Preferred Language: Khmer Communication Ability: Effective Visual Impairment: No Limitations Hearing Ability: Normal Fleet Mechanic Required: No Beliefs That Will Affect Care: None marital status: Current Living Situation: Spouse current occupational status: retired Feels Safe at Home: Yes Childhood Exposure to Second-Hand Smoke: Yes Dental Care, Regularly: Yes Physical Activity Frequency: Daily Seatbelt Use: always Sunscreen Use: Yes Assistive Devices: Walker Review of Systems All systems reviewed & are unremarkable except as noted in HPI & below. Physical Exam . Exam reveals a pleasant elderly female. She looks to be in excellent health. Her HEENT exam is benign. Neck supple with no lymphadenopathy. Lungs clear to auscultation. Heart is regular rate and rhythm. Abdomen soft nontender nondistended extremities grossly neuro vas intact up as follows. Examination the right knee reveals patient walks with use of a cane. He got a w ell-healed incision. She had a moderate-sized knee effusion. She got a lot of swelling around the anteromedial left tibia area. She can do a straight leg raise with about a 15 degree lag. Range of motion with flexion is about 90 degrees. There is no varus or valgus instability. Results & Data Results & Data Laboratory Results . The results are really a normal white blood cell count. Rate and C-reactive protein are markedly elevated. Knee aspirate results 95,000 white cells with majority acute inflammatory cells. The crystal analysis is negative. Gram stain revealed gram-positive cocci with many WBC. Diagnostic Findings . X-rays of the right knee were reviewed. It shows a cemented posterior stabilized total knee arthroplasty. Components look in good position. No signs of problems. She does have moderate sized knee joint effusion. PG Care Time/CCT Total # of Minutes Spent Total Time Spent with Patient: Total time spent is greater than 50% in coordination of care (as documented) at patient's floor/unit and/or counseling patient: Coding Level of Care Code 00638 Initial Inpt Care Lvl 3 Diagnoses Infection of total knee replacement T84.59XA; Z96.659
[2021-07-01] MEDS ORDERED: VANCOMYCIN CONSULT ACTIVE PRN (18:39)
[2021-07-01] MEDS: SODIUM CHLORIDE 0.9% 1000ML 1,000 ML IV SCH ×2 (22:26→22:31)
[2021-07-01] MEDS: DULoxetine HCL 30 MG CAP PO SCH (22:27)
[2021-07-01] MEDS ORDERED: VANCOMYCIN HCL 1,500 MG in SODIUM CHLORIDE 0.9% 500 ML IV ONE (22:30)
[2021-07-01] MEDS ORDERED: traMADol HCL 50 MG TABLET PO STA (23:14)
[2021-07-02] MEDS ORDERED: LIDOCAINE 2% 2 ML VIAL/AMP(20MG/ML) INFIL ONE (06:56)
[2021-07-02] MEDS ORDERED: ONDANSETRON INJ 2 MG/ML 2 ML VIAL ONE ×2 (06:56→09:53)
[2021-07-02] MEDS ORDERED: PROPOFOL IV EMULSION 10 MG/ML 20 ML VIAL IV ONE (06:56)
[2021-07-02] MEDS ORDERED: MIDAZOLAM HCL 1 MG/ML 2ML VIAL ONE (06:57)
[2021-07-02] MEDS ORDERED: VANCOMYCIN HCL 1000MG/20ML VIAL ONE ×2 (07:07→09:48)
[2021-07-02 07:09] LABS: Est GFR (African American) 101.7 ml/min; Est GFR (Non-African American) 87.7 ml/min
[2021-07-02] MEDS ORDERED: DAKIN'S SOLN 0.5% FULL STRENGTH 473ML BTL EXT ONE (07:15)
--- NOTE | 2021-07-02 07:24 | Anesthesiology Consultation ---
Date of Service July 02, 2021 Assessment & Plan (1) Encounter for pre-operative examination: Chart Review Chart Review: Acceptable Risk for Surgery History Surgery Operation Date: 07/02/21 06:55 Proposed Procedures p Poly Exchange(Right) - Krishna Doe MD s Incision and Drainage Knee(Right) - Krishna Doe MD Height/Weight Height: 5 ft 2 in Weight: 59.9 kg Allergies Allergy/AdvReac Type Severity Reaction Status Date / Time No Known Drug Allergies Allergy Unknown Verified 06/06/21 12:21 Medications Home Medications Medication Instructions Recorded Confirmed Last Taken omega-3 acid ethyl esters 1 gram 1 cap PO QAM cap 05/19/19 06/06/21 04/01/21 capsule biotin 10,000 mcg capsule 10,000 mcg PO QAM 06/01/20 06/06/21 04/07/21 08:00 cholecalciferol (vitamin D3) 25 10,000 unit PO QAM cap 06/01/20 06/06/21 04/01/21 mcg (1,000 unit) capsule vitamins A,C,N-uznt-zepmey 14,320 1 cap PO QAM 06/01/20 06/06/21 04/01/21 unit-226 mg-200 unit capsule (PreserVision AREDS) metoprolol succinate 50 mg See Rx Instructions .ROUTE 11/26/20 06/06/21 04/08/21 07:30 tablet,extended release 24 hr .COMPLEX #90 tab levothyroxine 50 mcg tablet 50 mcg PO QAM #90 tab 03/02/21 06/06/21 04/08/21 07:30 pantoprazole 20 mg tablet,delayed 20 mg PO QAM #30 tab 04/19/21 06/06/21 Unknown release rivaroxaban 20 mg tablet (Xarelto) 20 mg PO QAM #90 tab 05/02/21 06/06/21 Unknown duloxetine 30 mg capsule,delayed 30 mg PO BID #60 cap 05/24/21 06/06/21 Unknown release Active Medications Generic Name Dose Route Start Last Admin Trade Name Freq PRN Reason Stop Dose Admin Acetaminophen 650 mg 07/01/21 13:15 07/02/21 04:35 Acetaminophen 325 Mg Tab PO 07/31/21 13:14 650 mg Q6H PRN Administration Fever or Headache Duloxetine HCl 30 mg 07/01/21 21:00 07/01/21 22:27 Duloxetine Hcl 30 Mg Cap PO 07/31/21 20:59 30 mg BID AL Administration Sodium Chloride 1,000 mls @ 75 mls/hr 07/01/21 13:30 07/01/21 22:31 Nss 1000ml IV 07/31/21 13:29 75 mls/hr .[id number] AL Administration Past Medical History Medical History Anxiety Depression GERD (gastroesophageal reflux disease) Hiatal hernia Hyperlipidemia No meds Hypothyroidism Internal hemorrhoids Left knee DJD Left sided sciatica Neck pain Chronic Osteoarthritis Permanent atrial fibrillation on Xarelto, follows with [facility] cardiology Sensorineural hearing loss of both ears Stress incontinence, female Past Family History Family History Brother Bladder cancer Grandmother (Maternal) Breast cancer Mother Cardiac disorder Other No family history of adverse response to anesthesia Denies family history of Ovarian cancer Prostate cancer Myocardial infarction Colorectal cancer Past Surgical History Surgical History Breast enlargement History of ankle surgery Left ankle fusion History of bilateral cataract extraction History of colonoscopy History of esophagogastroduodenoscopy (EGD) History of foot surgery Bone spur removal/plantar fascitis sx History of repair of left rotator cuff x2 History of repair of right rotator cuff History of total hysterectomy with bilateral salpingo-oophorectomy (BSO) History of wisdom tooth extraction S/P laparoscopy Social History Smoking Status: Former smoker Hx Alcohol Use: No Hx Substance Use: No substance use type: does not use Physical Exam Vital Signs Last Vital Signs Temp 37.3 C 07/01/21 23:00 Pulse 113 H 07/01/21 23:00 Resp 18 07/01/21 23:00 BP 101/69 07/01/21 23:00 Pulse Ox 93 07/01/21 23:00 Testing Laboratory Results 07/02/21 06:19 Blood Type O Positive 07/01/21 22:21 Antibody Screen NEGATIVE 07/01/21 22:21 Laboratory Tests 06/30/21 06/30/21 09:45 09:48 Hgb 13.7 Plt Count 205 Potassium 3.7 Electrocardiogram Date: 07/01/21 Findings: + AFIB @ (113) Echocardiogram Date: 07/22/15 EF: 55-60% LV Function: normal Other Findings: + atrial enlargement (mild) Valvular Disease: + MR (mild) mild TR
[2021-07-02] MEDS ORDERED: fentaNYL citrate 100 MCG/2 ML VIAL ONE ×3 (07:25→09:43)
--- NOTE | 2021-07-02 07:29 | History & Physical Bridge Note ---
Date of Service July 02, 2021 History & Physical Bridge Note I have examined the patient, reviewed the History & Physical and in the interval since the performance of the History & Physical I have noted the following changes of clinical significance: no changes noted
[2021-07-02] MEDS ORDERED: TRANEXAMIC ACID / 0.7% NACL 1000MG/100ML BAG IV ONE (07:39)
[2021-07-02] MEDS ORDERED: KETOROLAC 30 MG/ML VIAL IV PRN (07:45)
[2021-07-02] MEDS ORDERED: ONDANSETRON INJ 2 MG/ML 2 ML VIAL IV PRN ×2 (07:45→15:23)
[2021-07-02] MEDS ORDERED: ATROPINE SULFATE 0.1 MG/ML 10ML SYR IV PRN (07:45)
[2021-07-02] MEDS ORDERED: PROMETHAZINE HCL 6.25 MG in SODIUM CHLORIDE 0.9% 50 ML IV PRN (07:45)
[2021-07-02] MEDS ORDERED: EPINEPHrine INJ 1 MG/ML AMP ONE (07:56)
[2021-07-02] MEDS ORDERED: BUPIVACAINE 0.5 % 5 MG/1 ML MPF 30ML VIAL ONE (07:56)
[2021-07-02] MEDS ORDERED: Influenza Vaccine-High Dose (Fluzone-HD) PF 65+ 0.7 ML SYR IM ONE (08:00)
[2021-07-02] MEDS ORDERED: ESMOLOL HCL INJ 10 MG/ML 10ML VIAL IV ONE (08:12)
[2021-07-02] MEDS ORDERED: METOPROLOL TARTRATE 1 MG/ML VIAL IV ONE ×2 (08:12→11:15)
[2021-07-02] MEDS ORDERED: PHENYLEPHRINE 100MCG/ML 5ML SYR ONE (08:12)
--- NOTE | 2021-07-02 08:23 | Hospitalist Consultation ---
Date of Consultation July 02, 2021 Assessment & Plan (1) Infection of total knee replacement: Acute right knee pain following R knee replacement approx 3 months ago Aspiration in office on 06/30 with WBC [id number] Cx showing staph aureus, pansensitive Presented for poly exchange and treatment Given dose of Vancomycin last evening -- pharmacy on consult Got dose of Ancef pre-op --> to be continued --> MSSA on cx and suspect Ancef should be sufficient unless intra-op cx with other finding NPO for OR this morning ESR 57--> 46 PT/OT/pain management/DVT prophylaxis per primary service Continue to monitor Plans for Dr Doe to start 1/2 dose Xarelto after 24 hours then increase back to usual dose (2) Atrial fibrillation with rapid ventricular response: --> EKG with afib with RVR rate 113bpm in patient with permanent afib on Xarelto. Called OR, anesthesia to be aware. Did not get her morning dose of metoprolol 50mg ordered (most recent office note May 2021 indicates patient actually on 25mg daily and will need to check with patient. --> Trop <0.015 --> 1gm IV magnesium (mag 1.9) Cx from OR to be obtained --> monitor and adjust abx as needed --> anticipate could use de-escalation from Vanco to just cover MSSA but will monitor cx --> de-escalated currently to Cefazolin --> CXR with pulmonary congestion/reticular opacities ?pneumonititis --> Given 20mg IV lasix now Moving to telemetry monitored bed post-op Lopressor IV prn rates >120bpm (3) Status post total right knee replacement: as above (4) Permanent atrial fibrillation: follows with Dr. Shepherd. On Xarelto, metoprolol as above --> continue metoprolol. Holding Xarelto given OR but would resume phillip post-op given permanent Afib (noted palpitations on last visit and could be reason for increased BB?) Continue to monitor (5) Hypothyroidism: Continues on levothyroxine 50mcg daily TSH 1.45 (6) Hyperlipidemia: Not on statin therapy Most recent Lipid Panel with Cholesterol 139, LDL 43, LDL 80, triglycerides 82 with excellent control (7) Depression: Continue Cymbalta 30mg PO BID (8) GERD (gastroesophageal reflux disease): Continue PPI -- Protonix 40mg daily (9) Vitamin D deficiency disease: Continue Vit D supplementation --> increase to outpatient dosing Vit 45.8 (10) Chronic anticoagulation: On Xarelto, on hold for OR as above Would resume phillip -- plans for 1/2 usual dose tomorrow moving to telemetry post-operatively for closer monitoring given afib/rvr as above Supervising Physician Co-Signing Physician Notes Attending Attestation - Chart reviewed in detail, care plan d/w PA Coco Keating. I agree w/ the moncada components of her consult documentation. PMH, PSH, allergies, meds, sochx, famhx - reviewed. 75yo female, s/p R TKR about 2.[address] Krishna Doe. Presented to ortho clinic on 06/30 c/o right knee pain. Effusion noted on exam, and aspiration performed. Gram stain + for GPC, and culture grew MSSA. Admitted to the hospital for septic R TKR, and underwent s/p I/D of right septic total knee replacement by Dr Doe today. Perioperative course complicated by rapid a.fib and ACUTE DIASTOLIC CHF. Agree with IV beta gold and IV lasix, respectively, along with transfer to telemetry for further monitoring. Medicine will continue to follow. Labs in am. Evert Sanderson MD History of Present Illness Reason for Consultation: medical and antibiotic management Requesting Physician: Dr Doe Attending Physician: Krishna Doe MD History of Present Illness 75yo female with PMHx significant for permanent afib, hypothyroidism, HLD (not on statin), depression, and recent total knee replacement approx 3 months ago presented after acute knee swelling/pain to orthopedic office where aspiration was performed which showed elevated WBCs and cx with staph auerus (pansensitive). Patient was admitted to hospital where she underwent a total knee replacement with poly exchange with Dr. Doe this morning. Patient evaluated in recovery room as patient with EKG with afib RVR last evening and did not get her AM metoprolol prior to surgery. Previously given 10mg IV Lopressor (5+5mg) and esmolol 60mg and remains afib RVR 110-120 She has been given Phenergan 6.25mg for nausea which per RN had been primary complaint and then for knee pain. Patient difficult to arise but was sleeping in no acute distress. Upon waking states does not feel well. Pain but denied chest pain. Did endorse shortness of breath but unable to discern if shortness of pain due to taking deep breath. Denied ever having this issue in the past. Currently under bear huinduer. Asked RN to obtain EKG, troponin. Added magnesium stat lab. Will also order 1gm IV magnesium and consult with cardiology (already discussed patient moving to telemetry monitored bed). No vomiting with her nauseousness and no abdominal pain at this time. EKG on admission with afib RVR rate 113bpm. -- as above, did not get her metoprolol 50mg this morning. Allergies Allergy/AdvReac Type Severity Reaction Status Date / Time No Known Drug Allergies Allergy Unknown Verified 06/06/21 12:21 Home Medications Medication Instructions Recorded Confirmed Type omega-3 acid ethyl esters 1 gram 1 cap PO QAM cap 05/19/19 07/07/21 History capsule biotin 10,000 mcg capsule 10,000 mcg PO QAM 06/01/20 07/07/21 History cholecalciferol (vitamin D3) 25 10,000 unit PO QAM cap 06/01/20 07/07/21 History mcg (1,000 unit) capsule vitamins A,C,S-flyf-diwkvu 14,320 1 cap PO QAM 06/01/20 07/07/21 History unit-226 mg-200 unit capsule (PreserVision AREDS) levothyroxine 50 mcg tablet 50 mcg PO QAM #90 tab 03/02/21 07/07/21 Rx pantoprazole 20 mg tablet,delayed 20 mg PO QAM #30 tab 04/19/21 07/07/21 Rx release rivaroxaban 20 mg tablet (Xarelto) 20 mg PO QAM #90 tab 05/02/21 07/07/21 Rx duloxetine 30 mg capsule,delayed 30 mg PO BID #60 cap 05/24/21 07/07/21 Rx release acetaminophen 500 mg tablet 1,000 mg PO Q8 30 Days #180 tab 07/04/21 07/07/21 Rx (Tylenol Extra Strength) cefazolin 2 gram/100 mL in 0.9 % 100 ml IV Q8H 42 Days ml 07/04/21 07/07/21 Rx sodium chloride intravenous solution metoprolol succinate 50 mg 100 mg PO DAILY #60 tab 10/11/21 10/14/21 Rx tablet,extended release 24 hr oxycodone 5 mg tablet 5 mg PO Q4H PRN #30 tab 07/04/21 07/07/21 Rx rifampin 300 mg capsule 300 mg PO Q12H #42 cap 07/04/21 07/07/21 Rx Patient History Medical History Anxiety Depression GERD (gastroesophageal reflux disease) Hiatal hernia Hyperlipidemia No meds Hypothyroidism Internal hemorrhoids Left knee DJD Left sided sciatica Neck pain Chronic Osteoarthritis Permanent atrial fibrillation on Xarelto, follows with [facility] cardiology Sensorineural hearing loss of both ears Stress incontinence, female Surgical History Breast enlargement History of ankle surgery Left ankle fusion History of bilateral cataract extraction History of colonoscopy History of esophagogastroduodenoscopy (EGD) History of foot surgery Bone spur removal/plantar fascitis sx History of repair of left rotator cuff x2 History of repair of right rotator cuff History of total hysterectomy with bilateral salpingo-oophorectomy (BSO) History of wisdom tooth extraction S/P laparoscopy Family History Brother Bladder cancer Grandmother (Maternal) Breast cancer Mother Cardiac disorder Other No family history of adverse response to anesthesia Denies family history of Ovarian cancer Prostate cancer Myocardial infarction Colorectal cancer Social History Smoking Status: Former smoker Second Hand Exposure: No; Hx Alcohol Use: No Hx Substance Use: No Preferred Language: Divehi Communication Ability: Effective Visual Impairment: No Limitations Hearing Ability: Normal Internal Grinding Machine Operator Required: No Beliefs That Will Affect Care: None marital status: Current Living Situation: Spouse current occupational status: retired Feels Safe at Home: Yes Childhood Exposure to Second-Hand Smoke: Yes Dental Care, Regularly: Yes Physical Activity Frequency: Daily Seatbelt Use: always Sunscreen Use: Yes Assistive Devices: Walker Review of Systems Review of Systems: All systems reviewed & are unremarkable except as noted in HPI & below and Unobtainable due to cognitive status (in PACU/anesthesia -- limited ROS as outlined in HPI) Physical Exam Constitutional: WD/WN, no acute distress but hard to arrouse post-operatively. Tachycardic with rates in 120s but not tachypneic. On 5L Oxymask and bearhugger present. Pupils equal/reactive Moves all extremeties mm slightly dry trachea midline without deviation resp; no cough, not tachypneic, end expiratory wheezing, on Oxymask to maintain saturations cv: irregularly irregular 123bpm on monitor, unable to appreciate murmur, no rubs or gallops, no edema, cap refill <3 seconds, pulses palpable ; +BS, soft, non-tender GI; quintana MSK: dressing with yelitza wrap and drain to RLE, pulses palpable, NVI, did not take through ROM due to surgery/pain Neuro; no facial droop, no focal deficit appreciate, moves all extremities, doesn't follow commands at time due to anesthesia Psych: awoken but falls back asleep. alert to person at this time Results & Data Results & Data ([facility]) Vital Signs (Past 12 Hours) Vital Signs Temp Pulse Resp BP Pulse Ox 07/01/21 23:00 37.3 C 113 H 18 101/69 93 07/01/21 21:21 36.5 C 116 H 18 108/73 97 Laboratory Results 07/02/21 07/02/21 07/01/21 Range/Units 06:19 06:19 23:07 ESR (0-30) mm/hr Creatinine 0.63 (0.6-1.2) mg/dl Est Cr Clr Drug Dosing 61.0 ml/min Est GFR ( Amer) 101.7 ml/min Est GFR (Non-Af Amer) 87.7 ml/min C-Reactive Protein (0-0.29) mg/dl COVID-19 Eval Order Hepatitis C Ab Screen Pending SARS-CoV-2, RNA, NAAT NEGATIVE (NEGATIVE) Blood Type Antibody Screen 07/01/21 07/01/21 07/01/21 Range/Units 23:07 22:21 22:21 ESR 46 H (0-30) mm/hr Creatinine (0.6-1.2) mg/dl Est Cr Clr Drug Dosing ml/min Est GFR ( Amer) ml/min Est GFR (Non-Af Amer) ml/min C-Reactive Protein 17.60 H (0-0.29) mg/dl COVID-19 Eval [facility] SARS-CoV-2, RNA, NAAT (NEGATIVE) Blood Type Antibody Screen 07/01/21 Range/Units 22:21 ESR (0-30) mm/hr Creatinine (0.6-1.2) mg/dl Est Cr Clr Drug Dosing ml/min Est GFR ( Amer) ml/min Est GFR (Non-Af Amer) ml/min C-Reactive Protein (0-0.29) mg/dl COVID-19 Eval Order Hepatitis C Ab Screen SARS-CoV-2, RNA, NAAT (NEGATIVE) Blood Type O Positive Antibody Screen NEGATIVE Diagnostic Findings Chest X-Ray 07/02/21 11:40 XR chest 1V portable HISTORY: 75 years-old Female sob, afib rvr acute shortness of breath COMPARISON: Chest radiograph 03/16/2021 TECHNIQUE: Portable AP view of the chest FINDINGS: Cardiac silhouette is mildly enlarged, unchanged. No pneumothorax or large pleural effusion. Pulmonary vascular congestion with mild reticular interstitial opacities. Increased density of the right lung base likely secondary to overlying breast tissue. Degenerative changes of the shoulders and spine. Postoperative changes of the left shoulder. IMPRESSION: Cardiomegaly and pulmonary vascular congestion with mild reticular interstitial opacities suggestive of pulmonary edema versus interstitial pneumonitis. ACT 112: Negative or not required by law. The above report was generated using voice recognition software. It may contain grammatical, syntax or spelling errors. Electronically signed by: Mike Dickens M.D. 07/02/2021 12:10 PM EKG with afib RVR with low voltage QRS. Notes nonspecific T wave abn rate 123bpm. Last evening EKG with Atrial fibrillation with rapid ventricular response with premature ventricular or aberrantly conducted complexes T wave abnormality, consider anterior ischemia Rate 113bpm PG Care Time/CCT Total # of Minutes Spent Total Time Spent with Patient: Total time spent is greater than 50% in coordination of care (as documented) at patient's floor/unit and/or counseling patient: Coding Level of Care Code 01729 Inpt Consult Level 3 Diagnoses Infection of total knee replacement T84.59XA; Z96.659 Status post total right knee replacement Z96.651 Depression F32.9 GERD (gastroesophageal reflux disease) K21.9 Vitamin D deficiency disease E55.9 Permanent atrial fibrillation I48.2 Hypothyroidism E03.9 Hyperlipidemia E78.5 Chronic anticoagulation Z79.01 Atrial fibrillation with rapid ventricular response I48.91
[2021-07-02] MEDS ORDERED: METOPROLOL SUCC 50MG EXT REL TAB PO SCH (09:00)
[2021-07-02] MEDS ORDERED: CHOLECALCIFEROL 1,000 UNITS 25 MCG TAB PO SCH (09:00)
--- NOTE | 2021-07-02 09:57 | Electrocardiogram Report ---
Test Reason : Blood Pressure : / mmHG Vent. Rate : 113 BPM Atrial Rate : 141 BPM P-R Int : 000 ms QRS Dur : 070 ms QT Int : 324 ms P-R-T Axes : 000 080 -32 degrees QTc Int : 444 ms Atrial fibrillation with rapid ventricular response with premature ventricular or aberrantly conducte d complexes T wave abnormality, consider anterior ischemia Abnormal ECG When compared with ECG of 01-JUL-2021 21:47, (unconfirmed) Atrial fibrillation has replaced Junctional rhythm Confirmed by Sonido Shepherd ([id number]) on 07/02/2021 9:57:15 AM Referred By: Krishna Doe Confirmed By:Sonido Shepherd
[2021-07-02] MEDS ORDERED: ceFAZolin 1000MG 1,000 MG/7.5 ML SYR IV ONE (10:23)
[2021-07-02] MEDS ORDERED: PROMETHAZINE HCL INJ 25 MG/ML 1 ML VIAL ONE (10:51)
[2021-07-02] MEDS: HYDROmorphone INJ 1 MG/ML SYRINGE IV PRN ×4 (11:01→12:28)
--- NOTE | 2021-07-02 11:12 | Operative Report ---
Post Operative Report Pre & Post Diagnosis Operation Date: 07/02/21 06:55 Pre-Op Diagnosis: Right total knee replacement infection Post-Op Diagnosis: Right infected total knee replacement I identified the patient and participated in the time-out.: Yes Procedure Operation Date: 07/02/21 06:55 Actual Procedures p Poly Exchange(Right) - Krishna Doe MD s Incision and Drainage Knee(Right) - Krishna Doe MD Surgeon Krishna Doe MD Professional Architect Riaz Reece PA-C Estimated Blood Loss 100 Findings Consistent with Post-Op Diagnosis Operative findings revealed and infected the knee replacement. She had moderately inflammatory joint effusion which was improved from 2 days ago at the time of aspiration. There was an area of purulence more around the proximal medial tibia which was thicker with some soft tissue necrosis. All implants were perfectly stable. Specimens Joint fluid was sent for a cell count and culture and Gram stain. 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 She underwent a right knee replacement about 3 months ago. She did quite well until earlier this week. On Sunday evening as she started to have some swelling in her knee. She had increased pain over the next day or so so she is presented to clinic 2 days ago. We I did a knee aspiration and sent this off for analysis. Results revealed findings consistent with an infected knee replacement. The patient indicated for irrigation debridement versus removal of implants and placement of antibiotic spacer. We talked about options and she strongly desired the irrigation debridement and polyexchange. Description of Procedure The patient was taken to the operating, identified, placed on the operating table supine position but all contractors were properly padded. IV antibiotics tried by the anesthesia team. She had gotten a vancomycin late last evening so we gave her 1 g of Ancef. A general anesthetic was implemented. A Pryor catheter was placed in sterile fashion. Right thigh turn was then placed in the right lower extremities and prepped and draped in usual sterile fashion. The right leg was elevated exsanguinated with use of an Esmarch and turns placed at 300 mmHg. An anterior approach to the right knee was then performed through longitudinal incision using the previous incision site. Sharp dissection was carried through subcutaneous tissues down the extensor mechanism. A medial parapatellar arthrotomy incision was made. Some subperiosteal dissection was carried out medially. There was, some necrotic tissue over the anterior medial tibia in the area that was swollen. A complete synovectomy of the suprapatellar pouch and medial lateral gutters was performed. Some of this tissue was sent for tissue culture. We did send some fluid for stat Gram stain and anaerobic and aerobic culture. Once the synovectomy was complete we flexed the knee and subluxated kneecap laterally. The polyethylene was removed. I then resected the synovium from the posterior aspect of the knee joint. Once this was completed I irrigated the wound with about a liter of normal saline. I then used full-strength Dakin solution and irrigated the blood tested in the knee joint for about 3 minutes. We then took a toothbrush and scrubbed of the implants and thoroughly both the femoral and tibial and the patella implants. I then irrigated the solution out of the knee with 3 L of normal saline. We then irrigated again with 500 cc of hydrogen peroxide. I also used a toothbrush to scrub the implants again at the end of this. We washed this out with an addit ional 2 L of pulsatile lavage. Once this was complete I irrigated the knee 1 more time with a dilute Betadine solution and scrub the implants again. I then irrigated this with out with a total of 3 L of normal saline. I did assess the implants and there were tibia and the femur and the patella were all very well fixed without signs of lucency. There was a little bone reaction over the medial tibia but felt this most likely related just to the periosteal stripping. The wound was once again irrigated slightly and then a it was covered with sterile blue towel. The drapes were then taken down and we placed entirely new drapes and suction and tubing after I prepped the leg 1 more time with ChloraPrep. At this point we irrigated the knee. We trialed the knee and the 10 mm insert fit most appropriately. She had good knee stability. I then irrigated the wound at 1 more time with 3 L of pulsatile lavage with vancomycin. We injected locally with 30 cc of half percent Marcaine. I then placed a gram of vancomycin in the deep wound. We did placed on posteriorly and then placed a 10 mm polyethylene insert. I then let the tourniquet down and hemostasis surgery electrocautery. We placed the remainder the vancomycin in the wound and then closed the extensor mechanism with #1 PDS suture in a [id number] fashion. The superficial wound was then irrigated. The subcutaneous tissue was then closed with 3-0 Monocryl suture in a buried interrupted fashion followed by skin sivakumar. Leg was then cleaned dried a sterile dressing both Xeroform, 4 x 4's, sterile cast padding, Anurag bandage were applied. Patient was then brought out of general incision transferred to the recovery room in stable condition. The patient tolerated the procedure well and there were no complications. Riaz Reece, my physician medical research assistant, was present for the entire procedure. His assistance was required for proper patient positioning, prepping and draping, surgical exposure, retraction, placement of the implants and closure of the wound followed by the a sterile dressing. I attest to the content of the Intraoperative Record and any orders documented therein. Any exceptions are noted below.
[2021-07-02] MEDS ORDERED: METOPROLOL TARTRATE 1 MG/ML VIAL IV STA ×2 (11:14→15:14)
[2021-07-02] MEDS ORDERED: MAGNESIUM SULFATE / D5W 1 GM/100 ML BAG IV ONE (11:26)
--- NOTE | 2021-07-02 11:50 | Anesthesiology Progress Note ---
Date of Service July 02, 2021 Anesthesia Post Procedure Vital Signs Vital Signs: Temp Pulse Pulse Pulse Resp BP BP 07/02/21 11:35 124 H 14 07/02/21 11:25 103 H 14 07/02/21 11:18 121 H 102/87 07/02/21 11:15 119 H 16 07/02/21 11:05 121 H 16 07/02/21 10:55 121 H 16 07/02/21 10:46 37.3 C 107 H 16 07/01/21 23:00 37.3 C 113 H 18 101/69 07/01/21 21:21 36.5 C 116 H 18 108/73 BP Pulse Ox 07/02/21 11:35 121/83 96 07/02/21 11:25 114/79 95 07/02/21 11:18 07/02/21 11:15 102/87 95 07/02/21 11:05 114/91 94 07/02/21 10:55 127/92 94 07/02/21 10:46 122/84 94 07/01/21 23:00 93 07/01/21 21:21 97 Pain Intensity Right Knee: Pain Intensity: 5 Transfer of Care Handoff Completed per policy Notes Mental Status: alert / awake / arousable Patient Amnestic to Procedure: Yes Nausea / Vomiting: improving with treatment Pain: adequately controlled Airway Patency, RR, SpO2: stable & adequate BP & HR: stable & adequate and see Notes below Hydration State: stable & adequate Anesthetic Complications: no major complications apparent Notes: chronic a fib, has been tachy since last night and through surgery - better control now with iv metoprolol but will send ursula to monitored bed for further monitoring and treatment
[2021-07-02] MEDS ORDERED: VANCOMYCIN HCL 750 MG in SODIUM CHLORIDE 0.9% 250 ML IV SCH (12:00)
[2021-07-02 12:08] LABS: Basophils # (auto) 0.02 K/uL (0-0.2); Basophils % (auto) 0.3 %; Eosinophils # (auto) 0.04 K/uL (0-0.5); Eosinophils % (auto) 0.6 %; Hematocrit (blood only) 35.7 % (37-47); Hemoglobin 11.5 g/dL (12.0-16.0); Immature Granulocytes # (auto) 0.01 K/uL (0.00-0.02); Immature Granulocytes % (auto) 0.2 %; Lymphocytes # (auto) 0.43 K/uL (1.2-3.4); Lymphocytes % (auto) 6.5 %; Mean Corpuscular Hemoglobin 29.6 pg (25-34); Mean Corpuscular Hgb Conc 32.2 g/dL (32-36); Mean Corpuscular Volume 91.8 fL (80-100); Mean Platelet Volume 9.8 fL (7.4-10.4); Monocytes # (auto) 0.41 K/uL (0.11-0.59); Monocytes % (auto) 6.2 %; Neutrophils # (auto) 5.72 K/uL (1.4-6.5); Neutrophils % (auto) 86.2 %; Platelet Count 226 K/uL (130-400); RDW Coefficient of Variation 13.8 % (11.5-14.5); RDW Standard Deviation 46.2 fL (36.4-46.3); Red Blood Count 3.89 M/uL (4.2-5.4); White Blood Count 6.63 K/uL (4.8-10.8)
--- NOTE | 2021-07-02 12:11 | XRay Report ---
XR chest 1V portable HISTORY: 75 years-old Female sob, afib rvr acute shortness of breath COMPARISON: Chest radiograph 03/16/2021 TECHNIQUE: Portable AP view of the chest FINDINGS: Cardiac silhouette is mildly enlarged, unchanged. No pneumothorax or large pleural effusion. Pulmonar y vascular congestion with mild reticular interstitial opacities. Increased density of the right lung base likely secondary to overlying breast tissue. Degenerative changes of the shoulders and spine. P ostoperative changes of the left shoulder. IMPRESSION: Cardiomegaly and pulmonary vascular congestion with mild reticular interstitial opacities suggestive of pulmonary edema versus interstitial pneumonitis. ACT 112: Negative or not required by law. The above report was generated using voice recognition software. It may contain grammatical, syntax o r spelling errors. Electronically signed by: Mike Dickens M.D. 07/02/2021 12:10 PM
[2021-07-02] MEDS ORDERED: FUROSEMIDE 20 MG in SYRINGE 0 ML IV ONE (12:22)
[2021-07-02 12:25] LABS: BUN Creatinine Ratio 17.3 (10-20); Blood Urea Nitrogen 10 mg/dl (7-18); Calcium 8.6 mg/dl (8.5-10.1); Carbon Dioxide 26 mmol/L (21-32); Chloride 107 mmol/L (98-107); Creatinine Clr Calc Pharmacy 64.1 ml/min; Est GFR (African American) 103.3 ml/min; Est GFR (Non-African American) 89.2 ml/min; Glucose 149 mg/dl (70-99); Magnesium 1.9 mg/dl (1.8-2.4); Potassium 4.1 mmol/L (3.5-5.1); Sodium 136 mmol/L (136-145)
[2021-07-02 12:29] LABS: Troponin I < 0.015 ng/ml (0-0.045)
[2021-07-02] MEDS ORDERED: FUROSEMIDE 40 MG/4 ML VIAL IV ONE (12:32)
[2021-07-02] MEDS: ceFAZolin 2000MG 2,000 MG/15 ML SYR IV SCH ×2 (14:40→23:08)
[2021-07-02] MEDS ORDERED: MAGNESIUM HYDROXIDE SUSP 30 ML UDC PO PRN (15:23)
[2021-07-02] MEDS ORDERED: METOCLOPRAMIDE HCL INJ 5 MG/ML 2 ML VIAL IV PRN (15:23)
[2021-07-02] MEDS ORDERED: VANCOMYCIN CONSULT ACTIVE PRN (15:23)
[2021-07-02] MEDS ORDERED: ALUMINUM/MAGNESIUM SUSP 30 ML UDC PO PRN (15:23)
[2021-07-02] MEDS ORDERED: NALOXONE HCL 0.4 MG/1 ML VIAL/CARP IV PRN (15:23)
[2021-07-02] MEDS ORDERED: HYDROmorphone INJ 0.5 MG/0.5 ML SYR IV PRN (15:23)
[2021-07-02] MEDS ORDERED: METOPROLOL TARTRATE 1 MG/ML VIAL IV PRN (15:23)
[2021-07-02] MEDS ORDERED: bisacodyL 10 MG SUPP PR PRN (15:23)
[2021-07-02] MEDS ORDERED: SODIUM CHLORIDE 0.9% 1000ML 1,000 ML IV SCH (16:00)
[2021-07-02] MEDS: LEVOTHYROXINE SODIUM 50 MCG TABLET PO SCH (16:06)
[2021-07-02] MEDS: PANTOprazole 40 MG TAB PO SCH (16:06)
[2021-07-02] MEDS: CEROVITE ADV FORMULA TAB PO SCH (16:06)
[2021-07-02] MEDS: DULoxetine HCL 30 MG CAP PO SCH ×2 (16:06→22:22)
[2021-07-02] MEDS: ACETAMINOPHEN 500 MG TAB PO SCH ×2 (16:46→22:24)
[2021-07-02] MEDS ORDERED: ALBUT/IPRATROP 3MG/0.5MG NEB 3 ML VIAL NEB PRN (18:29)
[2021-07-02] MEDS ORDERED: Nursing to Pharmacy Communication SCH (18:30)
[2021-07-02] MEDS: oxyCODONE HCL IR 5 MG TAB (IMMEDIATE RELEASE) PO PRN (20:38)
[2021-07-02] MEDS ORDERED: VANCOMYCIN HCL 1,000 MG in SODIUM CHLORIDE 0.9% 250 ML IV SCH (21:00)
[2021-07-02] MEDS: DOCUSATE SODIUM 100 MG CAP PO SCH (22:21)
[2021-07-02] MEDS: SENNA 8.6 MG TAB PO SCH (22:23)
[2021-07-02] MEDS: KETOROLAC TROMETHAMINE 15 MG/ML VIAL IV SCH (22:31)
[2021-07-03] MEDS ORDERED: SODIUM CHLORIDE 0.9% 1000ML 500 ML IV ONE (00:03)
[2021-07-03] MEDS: KETOROLAC TROMETHAMINE 15 MG/ML VIAL IV SCH ×3 (04:41→16:34)
[2021-07-03] MEDS: ACETAMINOPHEN 500 MG TAB PO SCH ×3 (05:26→21:39)
[2021-07-03] MEDS: ceFAZolin 2000MG 2,000 MG/15 ML SYR IV SCH ×3 (05:27→21:46)
[2021-07-03] MEDS: LEVOTHYROXINE SODIUM 50 MCG TABLET PO SCH (05:34)
[2021-07-03 07:41] LABS: Hematocrit (blood only) 34.5 % (37-47); Hemoglobin 11.5 g/dL (12.0-16.0); Mean Corpuscular Hemoglobin 30.6 pg (25-34); Mean Corpuscular Hgb Conc 33.3 g/dL (32-36); Mean Corpuscular Volume 91.8 fL (80-100); Platelet Count 218 K/uL (130-400); RDW Coefficient of Variation 13.8 % (11.5-14.5); RDW Standard Deviation 46.8 fL (36.4-46.3); Red Blood Count 3.76 M/uL (4.2-5.4); White Blood Count 5.32 K/uL (4.8-10.8)
--- NOTE | 2021-07-03 07:47 | Hospitalist Progress Note ---
Date of Service July 03, 2021 Assessment & Plan (1) Infection of total knee replacement: Plan: Acute right knee pain following R knee replacement approx 3 months ago Aspiration in office on 06/30 with WBC 29857 Cx showing staph aureus, pansensitive POD#1 s/p p Poly Exchange(Right) - Krishna Doe MD s Incision and Drainage Knee(Right) - Krishna Doe MD on 07/02 EBL 100 cc Hemoglobin 13.5 preophemoglobin today 11.5 however did remain on IV fluids overnight and preoperatively despite volume overload as below. Suspect acute blood loss anemia from surgery as well as dilution from IV fluid and will continue to monitor closely Afib/RVR Had been afib/rvr pre-op EKG, did not get metoprolol. Required multiple doses of IV lopressor and esmolol in PACU -- additional lopressor and IV lasix for congestion and stopped IVF IVF started again last evening for hypotension with shortness of breath/overload on follow up and given additional IV lasix 20mg and improvement of symptoms and on room air Suspect elevated rates combined with IVF worsening hypoxia/shortness of breath --> on room air. Did endorse some chronic cough/tightness over past several months --?pneumonitis on CXR. Has been staaying with her daughter one week a month and they are currently remodeling a bathroom question of exposure causing this issue and will order fluticasone for now and continue to monitor volume status. Increased and discussed with cardiology and plan to increase her metoprolol to 100 mg daily tomorrow and continue to monitor. Blood pressure remained stable 118/79 and despite recorded pulse of 121 she has remained 92 low 100s A. fib on monitor. No chest pain and troponin was negative. PT/OT/pain management/DVT prophylaxis per primary serviceXarelto was resumed at half dose today and plans to increase to her usual dose when able Discussed with Dr. Doe last evening and Ancef ideal choice given MSSA on culture however lab to run sensitivities on ceftriaxone from cultures from the OR. Does show gram-positive cocci and suspect this to be same as intraoffice culture from aspiration as above Discussed with case management and patient recommendations of IV antibiotics and PICC line to be obtained today. Will need 6 weeks of IV antibiotics with Ancef 2 g IV every 8. Question if infusion company able to do continuous infusion. Patient does demonstrate that she would be able to administer 3 times daily if needed ESR 57--> 46 CRP 18.7 now down to 16.2 PT/OT/pain management/DVT prophylaxis per primary service Continue to monitor (2) Atrial fibrillation with rapid ventricular response: Plan: --> EKG with afib with RVR rate 113bpm in patient with permanent afib on Xarelto. Called OR, anesthesia to be aware. Did not get her morning dose of metoprolol 50mg ordered --> Trop <0.015 --> 1gm IV magnesium (mag 1.9) Moved to telemetry for closer monitoring from PACU given A. fib RVR and complaints of shortness of breath. Chest x-ray obtained which showed signs of congestion and IV fluids were stopped and patient was administered 20 mg IV Lasix with improvement of her blood pressure however IV fluids were restarted again overnight for low blood pressure and she was overloaded slightly this morning and received additional 20 mg IV Lasix Metoprolol was increased 7 5 mg and patient has remained in the 90s to low 100s and plan to increase Toprol to 100 mg daily tomorrow after discussion with cardiology She remains asymptomatic from this Xarelto resumed at 10 mg today with plans to increase back to her usual dose the next 24 to 48 hours Continue to monitor on telemetry (3) Status post total right knee replacement: Plan: as above (4) Permanent atrial fibrillation: Plan: follows with Dr. Shepherd. Xarelto, metoprolol as above Continue telemetry (5) Hypothyroidism: Plan: Continues on levothyroxine 50mcg daily TSH 1.45 (6) Hyperlipidemia: Plan: Not on statin therapy Most recent Lipid Panel with Cholesterol 139, LDL 43, LDL 80, triglycerides 82 with excellent control (7) Depression: Plan: Continue Cymbalta 30mg PO BID (8) GERD (gastroesophageal reflux disease): Plan: Continue PPI -- Protonix 40mg daily (9) Vitamin D deficiency disease: Plan: Continue Vit D supplementation --> increase to outpatient dosing Vit 45.8 (10) Chronic anticoagulation: Plan: On Xarelto, on hold for OR as above Xarelto resumed 10 mg today and plans to increase back to usual dose as above Plan: PICC line to be obtained today, IV antibiotics being worked on by case management currently. Continue to monitor on telemetry and adjustment of her metoprolol as above to gain better control Possible discharge in the next 1 to 2 days once IV antibiotics arranged Admission and Anticipated Discharge Date Admission Date: July 01, 2021 Supervising Physician Co-Signing Physician Notes Attending Attestation - Chart reviewed, care plan d/w MARY KATE Keating. I agree w/ the moncada components of her documentation. Right septic total knee replacement s/p I/D by Dr Krishna Doe. Culprit pathogen - MSSA. Course complicated by rapid a.fib and ACUTE DIASTOLIC CHF. A.fib improved. ACUTE DIASTOLIC CHF - s/p IV lasix. All issues improving. Agree with IV ancef for right septic knee. Evert Sanderson MD Subjective Patient evaluated this morning. Doing well. Pain controlled and much improved from yesterday. Less shortness of breath but did report congestion this morning. Discussed volume overload and given dose of lasix. Improvement in congestion symptoms but she does note that she has had this congestion for the past couple of months, Has been spending one week month at daughters where they have been remodeling -- discussed possible pneumonitis from exposure but also could be some congestions from overload of fluid -- sometimes could be from elevated HR /afib. No hx asthma or COPD or inhaler use. Will order fluticasone and sputum cx if able to produce. She states clear at times, sometimes yellow. She denies palpitations. CM arranging for IV abx -- recs for Ancef. She states she would be able to do multiple dosing daily she believes but we will continue to monitor. Inflammatory markers trending down. No fever,chills,chest pain, abdominal pain, nausea, vomiting or dysuria at this time. Rates currently in the 90s-low 100s this morning. Had increased metoprolol to 75mg and will further increase to 100mg tomorrow as long as BP allows. Review of Systems Review of Systems: All systems reviewed & are unremarkable except as noted in HPI & below Physical Exam Physical Exam: WD/WN, no acute distress Eyes equal, reactive to light Trachea midline without deviation Lungs CTAB with faint scattered crackles, no wheezing. On room air Cardiac: Irregularly irregular 102bpm, no m/r/g, edema to RLE 2nd to surgery, pulses present, calves non-tender GI: +BS, soft, non-tender : quintana draining clear urine MSK: RLE dressing intact with yelitza wrap. able to dorsiflex/plantar flex with minimal pain, pulses palpable bilaterally, sensation intact Psych AOx3, euthymic Neuro; moves all extremities, no focal deficits Results & Data Results & Data ([facility]) Vital Signs (Past 12 Hours) Vital Signs Temp Pulse Pulse Pulse Resp BP Pulse Ox 07/03/21 06:20 112 H 07/03/21 03:00 36.9 C 111 H 20 125/88 98 07/03/21 01:29 37.0 C 106 H 20 108/73 96 07/02/21 23:00 37 C 103 H 20 95/59 L 97 Laboratory Results 07/03/21 07/03/21 Range/Units 07:01 07:01 WBC 5.32 (4.8-10.8) K/uL RBC 3.76 L (4.2-5.4) M/uL Hgb 11.5 L (12.0-16.0) g/dL Hct 34.5 L (37-47) % MCV 91.8 (80-100) fL MCH 30.6 (25-34) pg MCHC 33.3 (32-36) g/dL RDW Std Deviation 46.8 H (36.4-46.3) fL RDW Coeff of Kali 13.8 (11.5-14.5) % Plt Count 218 (130-400) K/uL MPV 10.0 (7.4-10.4) fL Sodium 140 (136-145) mmol/L Potassium 3.7 (3.5-5.1) mmol/L Chloride 106 (98-107) mmol/L Carbon Dioxide 30 (21-32) mmol/L Anion Gap 4.0 (3-11) BUN 9 (7-18) mg/dl Creatinine 0.73 (0.6-1.2) mg/dl Est Cr Clr Drug Dosing 52.7 ml/min Est GFR ( Amer) 93.4 ml/min Est GFR (Non-Af Amer) 80.6 ml/min BUN/Creatinine Ratio 12.8 (10-20) Glucose 106 H (70-99) mg/dl Calcium 8.9 (8.5-10.1) mg/dl C-Reactive Protein 16.20 H (0-0.29) mg/dl Diagnostic Findings Chest X-Ray 07/03/21 07:51 XR chest 1V portable HISTORY: 75 years-old Female f/u acute shortness of breath COMPARISON: Chest radiograph 07/02/2021, 03/16/2021. TECHNIQUE: Portable AP view of the chest Cardiac silhouette is mildly enlarged, unchanged. No pneumothorax or large pleural effusion. Pulmonary vascular congestion with mild reticular interstitial opacities. Increased density of the right lung base likely secondary to o verlying breast tissue. Degenerative changes of the shoulders and spine. Postoperative changes of the left shoulder. IMPRESSION: Cardiomegaly and pulmonary vascular congestion with unchanged mild interstitial coarsening. ACT 112: Negative or not required by law. The above report was generated using voice recognition software. It may contain grammatical, syntax or spelling errors. Electronically signed by: Mike Dickens M.D. 07/03/2021 8:29 AM PG Care Time/CCT Total # of Minutes Spent Total Time Spent with Patient: Total time spent is greater than 50% in coordination of care (as documented) at patient's floor/unit and/or counseling patient: Coding Level of Care Code 91033 Subseq Hosp Care Lvl 3 Diagnoses Infection of total knee replacement T84.59XA; Z96.659 Atrial fibrillation with rapid ventricular response I48.91 Status post total right knee replacement Z96.651 Permanent atrial fibrillation I48.2 Hypothyroidism E03.9 Hyperlipidemia E78.5 Depression F32.9 GERD (gastroesophageal reflux disease) K21.9 Vitamin D deficiency disease E55.9 Chronic anticoagulation Z79.01
[2021-07-03 07:56] LABS: BUN Creatinine Ratio 12.8 (10-20); C Reactive Protein 16.2 mg/dl (0-0.29); Calcium 8.9 mg/dl (8.5-10.1); Creatinine Clr Calc Pharmacy 52.7 ml/min; Est GFR (African American) 93.4 ml/min; Est GFR (Non-African American) 80.6 ml/min; Potassium 3.7 mmol/L (3.5-5.1)
[2021-07-03] MEDS: DULoxetine HCL 30 MG CAP PO SCH ×2 (08:06→21:38)
[2021-07-03] MEDS: DOCUSATE SODIUM 100 MG CAP PO SCH ×2 (08:06→21:38)
[2021-07-03] MEDS: CEROVITE ADV FORMULA TAB PO SCH (08:06)
[2021-07-03] MEDS: PANTOprazole 40 MG TAB PO SCH (08:07)
--- NOTE | 2021-07-03 08:16 | Progress Notes ---
DATE OF NOTE: 07/03/2021. SUBJECTIVE: A 75-year-old white female postoperative day 1 from I and D and polyethylene exchange fo r an infected knee replacement. She is doing pretty well. Pain is controlled. It has not been up a whole lot yet. No chest pain or shortness of breath. Not feeling dizzy or lightheaded. OBJECTIVE: VITAL SIGNS: Temperature 36.9. Vital signs stable. She is tachycardic at 112. EXTREMITIES: Examination of the right leg reveals the dressing to be clean, dry and intact. She can dorsiflex and plantarflex her foot appropriately. She can do a straight leg raise. She is neurolog ically intact. There is no drainage. LABORATORY DATA: Labs are still pending. ASSESSMENT: A 75-year-old white female postoperative day 1 from I and D and polyethylene exchange fo r a septic total knee replacement. Cultures are growing out methicillin-sensitive Staphylococcus aur eus. She is on IV antibiotics. Doing relatively well. PLAN: 1. DVT prophylaxis include thigh-high TEDs, SCDs, and baby aspirin twice a day for 6 weeks. 2. PT/OT. She can weight bear as tolerated on the right lower extremity. 3. Pain control, doing okay with current pain regimen. 4. Antibiotics. She has been switched to IV Ancef 2 g IV q. 8 hours based on pharmacy recommendatio ns. 5. Disposition: Plan to discharge to home with some home health. We are going to place a PICC line today and make sure she is doing okay with the antibiotics. Her heart rate has been a bit high and we need to get that down. Hopeful discharge in the next day or two. Job ID: [id number]
--- NOTE | 2021-07-03 08:30 | XRay Report ---
XR chest 1V portable HISTORY: 75 years-old Female f/u acute shortness of breath COMPARISON: Chest radiograph 07/02/2021, 03/16/2021. TECHNIQUE: Portable AP view of the chest Cardiac silhouette is mildly enlarged, unchanged. No pneumothorax or large pleural effusion. Pulmonar y vascular congestion with mild reticular interstitial opacities. Increased density of the right lung base likely secondary to overlying breast tissue. Degenerative changes of the shoulders and spine. P ostoperative changes of the left shoulder. IMPRESSION: Cardiomegaly and pulmonary vascular congestion with unchanged mild interstitial coarsenin g. ACT 112: Negative or not required by law. The above report was generated using voice recognition software. It may contain grammatical, syntax o r spelling errors. Electronically signed by: Mike Dickens M.D. 07/03/2021 8:29 AM
[2021-07-03] MEDS ORDERED: MULTIVITAMIN TAB PO SCH (09:00)
[2021-07-03] MEDS ORDERED: METOPROLOL SUCC 25MG EXT REL TAB PO SCH (09:00)
[2021-07-03] MEDS ORDERED: CHOLECALCIFEROL 1,000 UNITS 25 MCG TAB PO SCH (09:00)
--- NOTE | 2021-07-03 09:40 | Electrocardiogram Report ---
Test Reason : Blood Pressure : / mmHG Vent. Rate : 123 BPM Atrial Rate : 357 BPM P-R Int : 000 ms QRS Dur : 078 ms QT Int : 308 ms P-R-T Axes : 000 063 -39 degrees QTc Int : 440 ms Atrial fibrillation with rapid ventricular response Low voltage QRS Nonspecific T wave abnormality Abnormal ECG When compared with ECG of 01-JUL-2021 21:48, No significant change was found Confirmed by Sonido Shepherd ([id number]) on 07/03/2021 9:40:39 AM Referred By: Krishna Doe Confirmed By:Sonido Shepherd
[2021-07-03] MEDS ORDERED: POTASSIUM CHLORIDE CRTAB 20 MEQ TABCR PO STA (10:07)
[2021-07-03] MEDS ORDERED: FUROSEMIDE 20 MG in SYRINGE 0 ML IV ONE (10:30)
--- NOTE | 2021-07-03 11:16 | Cardiology Consultation ---
Date of Consultation July 03, 2021 Assessment & Plan (1) Atrial fibrillation with rapid ventricular response: -elevated ventricular response likely secondary to recent surgery and postoperative pain. -would increase metoprolol succinate to 100 mg daily. -continue long-term anticoagulation as you are. (2) Hypertension: -adequate control on current regimen. (3) Hyperlipidemia: -continue atorvastatin. (4) Chronic anticoagulation: -tolerating Xarelto without difficulty. History of Present Illness Attending Physician: Krishna Doe MD History of Present Illness Mrs. Dumont is a 75-year-old female admitted on July 01 with an infected prosthetic right knee. The patient developed a rapid response to her permanent atrial fibrillation following her surgical procedure. This consultation was ordered to assist in her cardiac management. Of note, the patient is well known to me from the outpatient setting. The patient's recent history began in March when she underwent a right total knee replacement. The patient did well until approximately 3-4 days prior to presentation. She developed significant discomfort and swelling in her right knee. A culture revealed methicillin sensitive Staph aureus. She underwent an I&D and poly exchange on July 02. The patient's procedure was uncomplicated except for a rapid ventricular response to her atrial fibrillation. The patient has been maintained on rate control and long-term anticoagulation for her permanent atrial fibrillation. Currently, patient is resting comfortably in bed and without complaints. Past medical and surgical history 1. Hypertension 2. Hypercholesterolemia 3. Permanent atrial fibrillation 4. Hypothyroidism 5. GERD 6. Hiatal hernia 7. DJD 8. Anxiety/depression 9. Hearing deficit 10. Right TKR-March 2021 11. SHMUEL/BSO 12. Bilateral intra-ocular lens implants 13. Bilateral rotator cuff repair 14. Left ankle fusion Social history and lives with her No tobacco or alcohol Family history Noncontributory Review of systems A 10 point review systems was undertaken and negative except for that described above. Allergies Allergy/AdvReac Type Severity Reaction Status Date / Time No Known Drug Allergies Allergy Unknown Verified 06/06/21 12:21 Home Medications Medication Instructions Recorded Confirmed Type omega-3 acid ethyl esters 1 gram 1 cap PO QAM cap 05/19/19 06/06/21 History capsule biotin 10,000 mcg capsule 10,000 mcg PO QAM 06/01/20 06/06/21 History cholecalciferol (vitamin D3) 25 10,000 unit PO QAM cap 06/01/20 06/06/21 History mcg (1,000 unit) capsule vitamins A,C,H-seky-desslr 14,320 1 cap PO QAM 06/01/20 06/06/21 History unit-226 mg-200 unit capsule (PreserVision AREDS) metoprolol succinate 50 mg See Rx Instructions .ROUTE 11/26/20 06/06/21 Rx tablet,extended release 24 hr .COMPLEX #90 tab levothyroxine 50 mcg tablet 50 mcg PO QAM #90 tab 03/02/21 06/06/21 Rx pantoprazole 20 mg tablet,delayed 20 mg PO QAM #30 tab 04/19/21 06/06/21 Rx release rivaroxaban 20 mg tablet (Xarelto) 20 mg PO QAM #90 tab 05/02/21 06/06/21 Rx duloxetine 30 mg capsule,delayed 30 mg PO BID #60 cap 05/24/21 06/06/21 Rx release Patient History Medical History Anxiety Depression GERD (gastroesophageal reflux disease) Hiatal hernia Hyperlipidemia No meds Hypothyroidism Internal hemorrhoids Left knee DJD Left sided sciatica Neck pain Chronic Osteoarthritis Permanent atrial fibrillation on Xarelto, follows with [facility] cardiology Sensorineural hearing loss of both ears Stress incontinence, female Surgical History Breast enlargement History of ankle surgery Left ankle fusion History of bilateral cataract extraction History of colonoscopy History of esophagogastroduodenoscopy (EGD) History of foot surgery Bone spur removal/plantar fascitis sx History of repair of left rotator cuff x2 History of repair of right rotator cuff History of total hysterectomy with bilateral salpingo-oophorectomy (BSO) History of wisdom tooth extraction S/P laparoscopy Family History Brother Bladder cancer Grandmother (Maternal) Breast cancer Mother Cardiac disorder Other No family history of adverse response to anesthesia Denies family history of Ovarian cancer Prostate cancer Myocardial infarction Colorectal cancer Social History Smoking Status: Former smoker Second Hand Exposure: No; Hx Alcohol Use: No Hx Substance Use: No Preferred Language: Ukrainian Communication Ability: Effective Visual Impairment: No Limitations Hearing Ability: Normal Behavioral Health Case Manager Required: No Beliefs That Will Affect Care: None marital status: Current Living Situation: Spouse current occupational status: retired Other Information That Helps Us Care for You: No Feels Safe at Home: Yes Safety Concerns: Feels Safe At This Time Childhood Exposure to Second-Hand Smoke: Yes Dental Care, Regularly: Yes Physical Activity Frequency: Daily Seatbelt Use: always Sunscreen Use: Yes Assistive Devices: Walker Physical Exam Physical Exam: In general this is a well-developed well-nourished white female in no acute distress. HEENT exam is negative. Neck is supple with full carotid upstrokes. There are no carotid bruits. Jugular venous pressure is flat at 90. There is no thyromegaly. Cardiovascular exam reveals a regular rhythm with a normal S1 and S2. No S3, S4, or murmurs are noted. Lungs are clear without rales, rhonchi, or wheezes. Abdomen is soft and nontender without bruits. Extremities reveal intact radial artery pulses bilaterally. Right lower extremity is dressed. Results & Data ([facility]) Vital Signs (Past 12 Hours) Vital Signs Temp Pulse Pulse Pulse Resp BP BP 07/03/21 07:53 36.9 C 106 H 20 121/82 07/03/21 06:20 112 H 07/03/21 03:00 36.9 C 111 H 20 125/88 07/03/21 01:29 37.0 C 106 H 20 108/73 Pulse Ox 07/03/21 07:53 98 07/03/21 06:20 07/03/21 03:00 98 07/03/21 01:29 96 Laboratory Results CBC notes hemoglobin 11.5, crit 34.5, white count 5.3, platelet count [id number]. Electrolytes note a sodium of 140, potassium 3.7, chloride 106, bicarb 30, BUN 19, creatinine 0.73. Glucose is 106. Diagnostic Findings EKG notes atrial fibrillation with a rapid ventricular response. There is low voltage and nonspecific T-wave abnormality. environmental monitoring technician notes atrial fibrillation with a ventricular response of approximately 100 beats per minute. PG Care Time/CCT Total # of Minutes Spent Total Time Spent with Patient: Total time spent is greater than 50% in coordination of care (as documented) at patient's floor/unit and/or counseling patient: Coding Level of Care Code 12072 Initial Inpt Care Lvl 3 Diagnoses Atrial fibrillation with rapid ventricular response I48.91 Hypertension I10 Hyperlipidemia E78.5 Chronic anticoagulation Z79.01
[2021-07-03] MEDS: RIVAROXABAN 10 MG TABLET PO SCH (11:24)
[2021-07-03] MEDS: oxyCODONE HCL IR 5 MG TAB (IMMEDIATE RELEASE) PO PRN ×2 (12:31→13:43)
[2021-07-03] MEDS: FLUTICASONE FUROATE 100MCG 14 PUFFS/INHALER INH SCH (13:43)
--- NOTE | 2021-07-03 14:45 | XRay Report ---
SINGLE VIEW CHEST CLINICAL HISTORY: PICC placement. FINDINGS: An AP, portable, upright chest radiograph is compared to study performed earlier the same d ay a right PICC line has been placed. The tip of the catheter projects over the cavoatrial junction. 07/03/2021. The heart appears enlarged. The pulmonary vasculature is noncongested chronic interstitia l thickening is similar to previous. Dependent airspace opacities are noted in both lungs. No large p leural effusion or pneumothorax is seen. The skeletal structures are osteopenic. The bony thorax is g rossly intact. Postoperative change is noted in the left humeral head. There is chronic widening of t he left AC joint. IMPRESSION: 1. A right-sided PICC line has been placed as above. 2. Cardiomegaly without radiographic evidence of congestive failure. 3. Bibasilar airspace opacities likely represent atelectasis. Clinical correlation will be required. ACT 112: Negative or not required by law. Electronically signed by: Abhijeet Barrera M.D. 07/03/2021 2:44 PM
[2021-07-03] MEDS: SENNA 8.6 MG TAB PO SCH (21:39)
[2021-07-04] MEDS: oxyCODONE HCL IR 5 MG TAB (IMMEDIATE RELEASE) PO PRN ×2 (03:27→17:21)
[2021-07-04] MEDS: ceFAZolin 2000MG 2,000 MG/15 ML SYR IV SCH ×3 (06:13→21:21)
[2021-07-04] MEDS: ACETAMINOPHEN 500 MG TAB PO SCH ×3 (06:14→21:21)
[2021-07-04] MEDS: LEVOTHYROXINE SODIUM 50 MCG TABLET PO SCH (06:14)
[2021-07-04 06:43] LABS: Hemoglobin 11.2 g/dL (12.0-16.0); Mean Corpuscular Hemoglobin 29.9 pg (25-34); Mean Corpuscular Hgb Conc 32.9 g/dL (32-36); Mean Corpuscular Volume 90.7 fL (80-100); Mean Platelet Volume 9.8 fL (7.4-10.4); Platelet Count 254 K/uL (130-400); RDW Coefficient of Variation 13.7 % (11.5-14.5); RDW Standard Deviation 45.7 fL (36.4-46.3); Red Blood Count 3.75 M/uL (4.2-5.4); White Blood Count 5.99 K/uL (4.8-10.8)
[2021-07-04 06:59] LABS: Albumin Level 2.2 gm/dl (3.4-5.0); Calcium 8.8 mg/dl (8.5-10.1); Est GFR (African American) 101.7 ml/min; Est GFR (Non-African American) 87.7 ml/min; Potassium 3.9 mmol/L (3.5-5.1)
[2021-07-04 07:02] LABS: Albumin Globulin Ratio 0.5 (0.9-2); Bilirubin,Total 0.5 mg/dl (0.2-1); Globulin 4.1 gm/dl (2.5-4.0); Total Protein 6.3 gm/dl (6.4-8.2)
[2021-07-04] MEDS: RIVAROXABAN 10 MG TABLET PO SCH (08:43)
[2021-07-04] MEDS: DOCUSATE SODIUM 100 MG CAP PO SCH ×2 (08:43→20:32)
[2021-07-04] MEDS: PANTOprazole 40 MG TAB PO SCH (08:45)
[2021-07-04] MEDS: CEROVITE ADV FORMULA TAB PO SCH (08:45)
[2021-07-04] MEDS: FLUTICASONE FUROATE 100MCG 14 PUFFS/INHALER INH SCH (08:45)
[2021-07-04] MEDS: DULoxetine HCL 30 MG CAP PO SCH ×2 (08:45→20:32)
[2021-07-04] MEDS ORDERED: METOPROLOL SUCC 50MG EXT REL TAB PO SCH (09:00)
--- NOTE | 2021-07-04 09:18 | Progress Notes ---
DATE OF NOTE: 07/04/2021. SUBJECTIVE: A 75-year-old female postop day 2 from an I and D and polyethylene exchange for infectio n of the knee replacement. She is doing pretty well. The pain is fairly mild. Responding to the [facility] n medicine. Therapy has gone pretty well. No chest pain or shortness of breath. OBJECTIVE: VITAL SIGNS: Temperature is 37. Pulse is slightly elevated at 107. Blood pressure is mildly elevat ed as well. GENERAL: Physical examination shows a pleasant middle-aged female. She is lying in bed, anxious to get home. Denies any chest pain or shortness of breath. Not feeling dizzy or lightheaded. EXTREMITIES: Examination of the right leg reveals the dressing to be clean, dry and intact. She can do a little straight leg raise. She can dorsiflex and plantarflex her foot appropriately. She is n eurologically intact. LABORATORY DATA: Hemoglobin is 11.2. Hematocrit 34.0. Electrolytes are stable. Both culture results from previously including OR culture results are consistent with methicillin-sen sitive Staphylococcus aureus. ASSESSMENT: A 75-year-old female postop day 2 from an I and D and polyethylene exchange for a right knee infection. She is doing pretty well. Cultures are both growing methicillin-sensitive Staphyloc occus aureus. She is on Ancef. PLAN: 1. DVT prophylaxis include thigh-high TEDs, SCDs and back on her Xarelto. We will give her 10 mg to day and start her back on 20 mg tomorrow. 2. PT/OT. She can weight bear as tolerated. 3. Pain control, doing okay with current pain regimen. We are going to use a limited oxycodone and then tramadol as needed after that. 4. Antibiotics. She is going to go home on 2 g of IV Ancef 3 times a day for a total of 6 weeks. S he will probably need at least 6 months of total coverage. 5. Disposition: She is orthopedically okay for discharge. We will need to make sure her antibiotic s are set up. We need to check with the medicine doctors and make sure they are okay with her heart rate, but she was pretty fairly tachycardic in general. She is going to be discharged to home with s [facility]. Job ID: [id number]
--- NOTE | 2021-07-04 12:03 | Cardiology Progress Note ---
Date of Service July 04, 2021 Assessment & Plan (1) Atrial fibrillation with rapid ventricular response: Plan: -elevated ventricular response likely secondary to recent surgery, postop pain, and her mild anemia. -would increase metoprolol succinate to 100 mg b.i.d.. -continue long-term anticoagulation. (2) Hypertension: Plan: -borderline control on current regimen. (3) Hyperlipidemia: Plan: -continue atorvastatin. (4) Chronic anticoagulation: Plan: -tolerating Xarelto without difficulty. Admission and Anticipated Discharge Date Admission Date: July 01, 2021 Subjective The patient is resting comfortably in bed without complaints of chest pain, dyspnea, or palpitations. She is concerned that her ventricular response is elevated with physical activity. Physical Exam Physical Exam: In general this is a well-developed well-nourished white female in no acute distress. HEENT exam is negative. Neck is supple with full carotid upstrokes. There are no carotid bruits. Jugular venous pressure is flat at 90. There is no thyromegaly. Cardiovascular exam reveals an irregularly irregular rhythm with distant heart sounds. No S3, or murmurs are noted. Lungs are clear without rales, rhonchi, or wheezes. Abdomen is soft and nontender without bruits. Extremities reveal intact radial artery pulses bilaterally. Right lower extremity is dressed. Results & Data ([facility]) Vital Signs (Past 12 Hours) Vital Signs Temp Pulse Pulse Resp BP BP Pulse Ox 07/04/21 08:12 37 C 107 H 99 H 20 144/91 H 118/79 93 07/04/21 03:00 37 C 107 H 20 144/91 H 93 Diagnostic Findings manager lsw notes atrial fibrillation with a rapid ventricular response. PG Care Time/CCT Total # of Minutes Spent Total Time Spent with Patient: Total time spent is greater than 50% in coordination of care (as documented) at patient's floor/unit and/or counseling patient: Coding Level of Care Code 52897 Subseq Hosp Care Lvl 3 Diagnoses Atrial fibrillation with rapid ventricular response I48.91 Hypertension I10 Hyperlipidemia E78.5 Chronic anticoagulation Z79.01
--- NOTE | 2021-07-04 16:31 | Hospitalist Progress Note ---
Date of Service July 04, 2021 Assessment & Plan (1) Prosthetic joint infection: Plan: -Patient is s/p I&D with polyexchange -Culture data: MSSA with navarro sensitivity Gram Stain Final 07/02/21- 1417 Gram Stain Result Moderate Polys Few Gram Positive Cocci Phoned results to JEB MULLEN on 07/02/21 at 1418 by Oswaldo Johnson and results were verbalized back. Aero/Desire Cult Preliminary 07/04/21-0850 Organism 1 Staphylococcus aureus Quantity Moderate Sens Sensitivities to Follow S aureus RX M.I.C. --- --------- Clindamycin S <=0.5 Daptomycin S <=0.5 Erythromycin S <=0.5 Oxacillin S <=0.25 Tetracycline S <=4 Trimeth/Sulfa S <=0.5/9.5 Vancomycin S 2 -Plan is for IV Ancef. Agree with this based on culture data. Would advise 6 weeks of IV antibiotic therapy -In addition, advise addition of rifampin due to indwelling hardware and risk for biofilm. Would use this for 3 weeks -Last, recommend probiotic (specifically align given its yeast based componentgiven the fact that patient is going to be on IV antibiotics X 6 weeks). -From a medical standpoint, no contraindication to proceed with discharge once home antibiotic therapy can be arranged. Case management is on board (2) Atrial fibrillation with rapid ventricular response: Plan: -Initially had RVR (130s). I suspect this was due to the catecholamine release from active infection and possibly pain driven -At any rate, her metoprolol succinate has been increased from 50 mg to 100 mg. Cardiology on board and recommended increasing further. I did discuss this with cardiology, will trial 75 mg twice daily and further titrate if needed -Patient is on chronic anticoagulation therapy. Currently Xarelto being given at 10 mg (for DVT prophylaxis). Would uptitrate back to 20 mg at discretion of Ortho (3) Hypothyroidism: Plan: -TSH normal at 1.14. Continue Synthroid as prior to hospitalization (4) Chronic anticoagulation: Plan: -As reported above, patient takes chronic Xarelto. Currently on 10 mg (postsurgical). Uptitrate back to 20 at discretion of Ortho Plan: -Plan of care discussed with Dr. Doe along with Dr. Tong. In addition, discussed with case management and prescription for labs provided Admission and Anticipated Discharge Date Admission Date: July 01, 2021 Subjective Patient seen on daily rounds today. She is on the service of orthopedics for a prosthetic joint infection (right knee). Initial right TKA done April [address] Doe here at [facility] Has been having increased pain, swelling, and redness. Underwent I&D with polyexchange on 07/02 Culture data growing MSSA PICC line in place. Set up for outpatient Ancef. Was to be discharged today; however, visiting nurses cannot come in until tomorrow which would lead to missing doses of antibiotics. In addition, patient does have chronic A. fib. Throughout this hospital stay she had issues with RVR. Heart rate remains variable despite up titration in her beta-blockade from metoprolol succinate 50 mg once a day 200 mg once a day. Heart rate this morning was 92. Has been seen by cardiology Review of Systems Review of Systems: All systems reviewed and are unremarkable except as noted in HPI and below Denies fevers, chills, headache, nasal congestion, sore throat, cough, chest pain, shortness of breath, palpitations, orthopnea, PND, abdominal pain, nausea, vomiting, diarrhea, constipation, dysuria, hematuria, frequency, back pain, joint pain or swelling, easy bruising or bleeding, skin lesions or rashes. Physical Exam Physical Exam: General: Resting comfortably in her hospital bed. Does not appear ill or toxic. NAD. HEENT: Head is AT/NC buccal mucosa is moist and pink Neck: No JVD. Negative hepatojugular reflex Cardiac: Irregular regular with a rate of 98 bpm Lungs: CTA without W/R/R Abdomen: Normoactive X4. Soft and nontender in all quadrants. Extremities: Right knee with Anurag wrap. This is dry intact. No obvious indwelling drain. Peripheral pulses are intact and symmetrical. Cap refill +2. Negative Homans' sign Neuro: A&O X4 cranial nerves II through XII are grossly intact no focal neuro deficits Skin: No obvious skin lesions or rashes Psych: Appropriate affect pleasant and cooperative Results & Data Results & Data ([facility]) Vital Signs (Past 12 Hours) Vital Signs Temp Pulse Pulse Resp BP BP Pulse Ox 07/04/21 08:12 37 C 107 H 99 H 20 144/91 H 118/79 93 Laboratory Results 07/04/21 06:14 07/04/21 06:14 PG Care Time/CCT Total # of Minutes Spent Total Time Spent with Patient: Total time spent is greater than 50% in coordination of care (as documented) at patient's floor/unit and/or counseling patient: Coding [place] [address] Inpt Consult Level 4 Patient Type Established History Detailed Exam Detailed Medical Decision Making Moderate Complexity Diagnoses Prosthetic joint infection T84.50XA Atrial fibrillation with rapid ventricular response I48.91 Hypothyroidism E03.9 Chronic anticoagulation Z79.01
[2021-07-04] MEDS: SENNA 8.6 MG TAB PO SCH (20:33)
[2021-07-04] MEDS ORDERED: rifAMPin 300 MG CAPSULE PO SCH (21:00)
[2021-07-04] MEDS ORDERED: METOPROLOL SUCC 25MG EXT REL TAB PO SCH (21:00)
--- NOTE | 2021-07-05 16:07 | Communication Note ---
Date of Service: July 05, 2021 Patient discharged and left the building prior to being seen by medicine this morning (left around 7am)--after a.m. dose of Ancef infused Would advise discontinuation with increased beta-blockade and follow-up with cardiology See note as outlined from yesterday
--- NOTE | 2021-07-11 14:27 | Discharge Summary ---
Date of Service July 11, 2021 Admission HPI (Per Admitting) . Patient is a 75-year-old female whose had a long history of bilateral knee pain discomfort right side greater than left. She is failed all conservative treatment and underwent a right knee replacement just about 3 months ago. She did quite well and progressed in therapy quite well and is back to essentially normal activities about 6 to 8 weeks out from surgery. She has been very active and no injuries. On Sunday evening she was talking on the phone and felt her knee started to swell up and get more painful. The knee became more painful and discomfort the next 2 days and she presented the clinic just yesterday with swelling. She is on Xarelto. There was some concern of a hemarthrosis. We aspirated her knee and sent off for pathology and it showed 95,000 white cells with majority inflammatory cells. The Gram stain suggested some gram-positive cocci. Crystal analysis is negative. She is indicated for irrigation debridement. She was doing quite well until just earlier this week. No fevers. She is not feeling ill. Her knee is quite a bit more painful and it has been the entire time. She got minimal relief from the aspiration. Jaron, she is gotten infected the knee acutely. She presents for surgical treatment at this time. Admission Exam (Per Admitting) . Exam reveals a pleasant elderly female. She looks to be in excellent health. Her HEENT exam is benign. Neck supple with no lymphadenopathy. Lungs clear to auscultation. Heart is regular rate and rhythm. Abdomen soft nontender nondistended extremities grossly neuro vas intact up as follows. Examination the right knee reveals patient walks with use of a cane. He got a well-healed incision. She had a moderate-sized knee effusion. She got a lot of swelling around the anteromedial left tibia area. She can do a straight leg raise with about a 15 degree lag. Range of motion with flexion is about 90 degrees. There is no varus or valgus instability. Principal Diagnosis Same as "Discharge Diagnosis" noted below under Discharge Instructions. Discharge Data Consultations 07/01/21 18:59 Consult Hospitalist Routine 07/02/21 15:23 Consult Cardiology Routine Procedures Performed Operation Date: 07/02/21 06:55 Actual Procedures p Poly Exchange(Right) - Krishna Doe MD s Incision and Drainage Knee(Right) - Krishna Doe MD Hospital Course (1) Prosthetic joint infection: Abril is a pleasant 75 year old female who presented to [facility] on 07/02/21 for right knee I+D and poly exchange for right knee infection following right total knee arthroplasty. Patient tolerated the procedure well, there were no complications. She was transferred to the PACU postoperatively and later to the orthopedic floor for further care. On post OP day one, she did experience some tachycardia, cardiology was consulted. She was seen by physical therapy for ambulatory assistance. Her pain was well controlled. On post OP day two, cardiology visited with patient and had patient continue her Xarelto and increased her daily dose of Metoprolol. Again, physical therapy assisted her with ambulation. Her pain was well controlled. She was given printed discharge instructions. DVT prophylaxis included thigh-high TEDs, SCDs and continuation of Xarelto. She may remain weight bearing as tolerated. For pain control, limited Oxycodone was sent home, followed by Tramadol as needed. She went home with 2g of IV Ancef TID for a total of 6 weeks. She will follow-up in about 2 weeks postop or sooner if there are any problems. PG Care Time/CCT Total # of Minutes Spent Total Time Spent with Patient: Total time spent is greater than 50% in coordination of care (as documented) at patient's floor/unit and/or counseling patient: Discharge Plan Discharge Items Patient Disposition: Home - Home Health Services Reason For Visit: TOTAL KNEE WASHING OUT 07/02/2021 Discharge Diagnosis: Right knee infection Activity: Per Instructions section Non-emergency contact: Surgeon Call non-emergency contact if: you have any medication questions Follow-up/Referrals: Brian Marcelo MD [Primary Care Provider] - Krishna Doe MD [Physician] - (2-3 weeks post-op ) Diet: Regular Addtl Attending Provider Instructions: ACTIVITY RECOMMENDATIONS: Physical Therapy: * You will go to physical therapy three times each week for four to six weeks after your surgery in order to regain your knee range of motion and to retrain your knee to work properly. * It is just as important to make sure you are getting your knee perfectly straight as it is to regain your knee bend. * Taking a pain pill an hour before therapy can help you have a more productive and comfortable therapy session. Home Exercise: * You were shown a series of exercises (heel props, heel slides, etc.) in the hospital. Do these exercises three to four times each day including the exercises you were shown in physical therapy. Walking: * Get up and walk several times each day. For the first four weeks, try not to stand or walk for more than one hour at a time. If you do stand or walk for more than one hour, you will not hurt anything, but your knee and leg will likely swell. * As you feel comfortable, you may change from the walker or crutches to a cane and then to independent walking. MEDICATIONS: New Medicine: * You will likely be taking one or more of these medications: 1. Oxycodone - A quick and shorter-acting pain medication. Take one to two tablets every six hours to lessen your pain. 2. Aspirin - Thins your blood to lessen the chance of forming a blood clot. * The most common side effects of pain medicine and iron are nausea and constipation. If nausea or constipation is too much of a problem or if you have any questions about your new medicines or doses, call [facility] at . We will try to help you manage these issues. "VERY IMPORTANT TO READ AND REVIEW" Pain: * The immediate post-operative period after knee replacement surgery is often quite painful. * You are given a prescription for pain medicine. You should take it, as directed, when you need it, especially before physical therapy and before going to bed. Pain that interferes with sleep is very common and can last several months. * You will likely need pain medicine for the first four to six weeks. It will not stop all of the pain. The pain will lessen and as you feel better, you may change to milder pain medicine such as Tylenol. * The most common side effects of pain medicine are nausea and constipation, so don't take more than you need. SPECIAL CARE INSTRUCTIONS: TEDs/Elastic Stockings: * The white elastic stockings help limit swelling and prevent blood clots from forming in your legs. The more you wear them, the more they work. * Wear them for six weeks after knee replacement surgery and four weeks after partial knee replacement. Prevention of Infection: * Take antibiotics one hour before any dental cleaning, dental work, urological procedure, gastrointestinal procedure or any invasive surgery in order to prevent your new joint from getting infected. * You may get the antibiotics from the doctor performing the procedure or you may call our office at before and we will call in a prescription to the pharmacy of your choice. Things to Watch For: * Drainage from the incision site that occurs more than one week after your surgery. * Severely increased knee/leg pain or swelling. * Increased redness at the incision site. * Fever above 102 degrees Fahrenheit. * Unusual chest pain or shortness of breath. * Unusual pain or burning with urination. Call [facility] at with any of the above problems or if you have any questions about your medicines or recovery. FOLLOW UP VISIT: Make an appointment to see your doctor for approximately two weeks after surgery for a progress check and staple removal by calling the office at . Addtl Spiral Tube Winder Provider Instructions: - In addition to IV antibiotic therapy, you have been prescribed oral Rifampin to take twice a day for 3 weeks (to help prevent "biofilm" on the indwelling hardware in place) given the staph species - As discussed, I would advise a probiotic (Specifically Align as it is yeast based) while on antibiotic therapy. This is Over the Counter and will help replenish the 'good bacteria' in the gut and limit the risk of a "super infection" - follow up with PCP: 7-10 days - follow up with Ortho: as outlined Pending Studies at Discharge: No Stand-Alone Forms: My [facility], Smoking Cessation Medications and DC Order Prescriptions: New metoprolol succinate 50 mg Tablet Extended Release 24 Hr 100 mg PO DAILY Qty: 60 RF: 0 acetaminophen [Tylenol Extra Strength] 500 mg Tablet 1,000 mg PO Q8 30 Days Qty: 180 RF: 0 oxycodone 5 mg Tablet 5 mg PO Q4H PRN (Reason: pain) Qty: 30 RF: 0 cefazolin in 0.9% sod chloride 2 gram/100 mL solution 100 ml IV Q8H 42 Days RF: 0 rifampin 300 mg capsule 300 mg PO Q12H Qty: 42 RF: 0 Continued levothyroxine 50 mcg tablet 50 mcg PO QAM Qty: 90 RF: 3 pantoprazole 20 mg tablet,delayed release (DR/EC) 20 mg PO QAM Qty: 30 RF: 5 Xarelto 20 mg tablet 20 mg PO QAM Qty: 90 RF: 3 duloxetine 30 mg capsule,delayed release(DR/EC) 30 mg PO BID Qty: 60 RF: 2 omega-3 acid ethyl esters 1 gram capsule 1 cap PO QAM RF: 0 biotin 10,000 mcg capsule 10,000 mcg PO QAM RF: 0 PreserVision AREDS [id number] [id number]-lo-[id number] capsule 1 cap PO QAM RF: 0 cholecalciferol (vitamin D3) 25 mcg (1,000 unit) capsule 10,000 unit PO QAM RF: 0 Discharge Orders: Discharge Order (Routine); Ordered 07/04/21 Ordered By: Krishna Doe Admission Data Admit Date/Time: 07/01/21 21:59 Attending Provider: Krishna Doe Admit Provider: Krishna Doe Primary Care Provider: Brian Marcelo V. Other Providers: Coco Keating ; Evert Sanderson ; Jamel Montoya ; Ran Garay ; Angelo Balbuena ; Hiren Tong ; Abhijeet Armstrong ; Billie Watts ; Marcelina Contreras ; James Figueroa ; Sienna Singh ; Ina Doe ; Leonel Rehman ; Kyle Marcus ; Coco Monreal ; Jace Blanco ; Dharmesh Vital ; David Toney ; Evert Hewitt ; David Hunt ; Vira Perez ; Bruno Diego ; Sienna Fernandez ; Isael Banegas ; César Santana ; Margaret Marin ; Sonido Shepherd Other Interventions: Discharge Summary Assessment (RN) Last Done: 07/04/21 08:12
== END 2021-07-05 05:51 | disposition home health service (06) | DRG 463 ==
LOC: 3E 21:59 → 2N 07-02 10:54 → PACUINP 07-02 12:12 → 2N 07-02 15:25

== ENCOUNTER 2024-05-30 06:28 | Observation (INO) ==
--- NOTE | 2024-04-25 12:03 | PAT Medication Instructions ---
Medication Instructions Date of Service April 25, 2024 Home Medications Medication Instructions Recorded rivaroxaban 20 mg tablet (Xarelto) 20 mg PO QAM #90 tabs 05/02/21 metoprolol succinate 100 mg 100 mg PO BID #60 tabs 11/01/21 tablet,extended release 24 hr duloxetine 20 mg capsule,delayed 20 mg PO BID #180 caps 06/22/23 release hydroxyzine HCl 25 mg tablet 25 mg PO HS PRN Sleep disturbances 06/22/23 #90 tabs levothyroxine 50 mcg tablet 50 mcg PO QAM #90 tabs 11/16/23 amoxicillin 500 mg tablet 2,000 mg (4 x 500 mg) PO ONCE PRN 02/06/24 IE prophylaxis #4 tabs pantoprazole 20 mg tablet,delayed 20 mg PO QAM #30 tabs 04/06/24 release omega-3 acid ethyl esters 1 gram capsule 1 cap PO QAM rivaroxaban 20 mg tablet (Xarelto) 20 mg PO QAM metoprolol succinate 100 mg tablet,extended release 24 hr 100 mg PO BID duloxetine 20 mg capsule,delayed release 20 mg PO BID hydroxyzine HCl 25 mg tablet 25 mg PO HS PRN levothyroxine 50 mcg tablet 50 mcg PO QAM amoxicillin 500 mg tablet 2,000 mg (4 x 500 mg) PO ONCE PRN pantoprazole 20 mg tablet,delayed release 20 mg PO QAM Nutrofol 1 tab PO QAM vit C 250 mg-vit E 90 mg-zinc 40 mg-copper 1 [id number]-oulwtr capsule (PreserVision AREDS-2) 1 tab PO BID vitamin A 2,400 mcg capsule 2,400 mcg PO DAILY vitamin B complex 1 tab PO DAILY vitamin E 268 mg (400 unit) capsule 268 mg PO DAILY Continue as directed amoxicillin 500 mg tablet 2,000 mg (4 x 500 mg) PO ONCE PRN(if needed) ASK your prescriber and surgeon rivaroxaban 20 mg tablet (Xarelto) 20 mg PO QAM(in order for spinal or epidural anesthesia, Xarelto needs to be stopped 72 hours/3 days before surgery. Please check if okay with doctor that prescribes this to you) STOP taking 2 weeks before surgery (or as soon as possible if surgery is within 2 weeks) omega-3 acid ethyl esters 1 gram capsule 1 cap PO QAM Nutrofol 1 tab PO QAM vit C 250 mg-vit E 90 mg-zinc 40 mg-copper 1 [id number]-ucyoai capsule (PreserVision AREDS-2) 1 tab PO BID vitamin A 2,400 mcg capsule 2,400 mcg PO DAILY vitamin E 268 mg (400 unit) capsule 268 mg PO DAILY DO NOT take the morning of surgery vitamin B complex 1 tab PO DAILY Take morning of surgery With a small sip of water, OTHERWISE NOTHING TO EAT OR DRINK AFTER MIDNIGHT: metoprolol succinate 100 mg tablet,extended release 24 hr 100 mg PO BID duloxetine 20 mg capsule,delayed release 20 mg PO BID levothyroxine 50 mcg tablet 50 mcg PO QAM pantoprazole 20 mg tablet,delayed release 20 mg PO QAM Take evening before surgery metoprolol succinate 100 mg tablet,extended release 24 hr 100 mg PO BID duloxetine 20 mg capsule,delayed release 20 mg PO BID hydroxyzine HCl 25 mg tablet 25 mg PO HS PRN(if needed) Other Notes If you have any questions please call us at [phone] or [phone] or [phone] or [phone]
--- NOTE | 2024-04-30 08:18 | Anesthesiology Consultation ---
Date of Service April 30, 2024 Assessment & Plan (1) Encounter for pre-operative examination: Plan - cardiology office visit 04/22/24 [facility]: "...permanent atrial fibrillation with variable heart rate control...feeling well...asymptomatic...no cardiac contraindications to proceeding with knee surgery as scheduled on 05/30/2024..." - Outpatient joint assessment: Patient is currently scheduled for inpatient pathway. If re-evaluated and patient/surgeon requests outpatient pathway, patient is not advised candidate for outpatient joint program from anesthesia standpoint. Chart Review Chart Review: Acceptable Risk for Surgery and Patient seen in Pre Admission Testing Teaching & Discussion Pre-Anesthesia Teaching/Discussion Notes: Instructed NPO after midnight before surgery, except medications with 15 cc of water. Medication instructions provided according to the PAT guidelines. History Surgery Operation Date: 05/30/24 07:00 Proposed Procedures p Left Total Knee Arthroplasty - Krishna Doe MD Height/Weight Height: 5 ft 1 in Weight: 58 kg Allergies Allergy/AdvReac Type Severity Reaction Status Date / Time meperidine AdvReac Intermediate Nausea Verified 04/30/24 10:33 morphine AdvReac Intermediate Nausea Verified 04/30/24 10:33 Medications Home Medications Medication Instructions Recorded Confirmed Last Taken omega-3 acid ethyl esters 1 gram 1 cap PO QAM 05/19/19 04/25/24 12/09/23 capsule rivaroxaban 20 mg tablet (Xarelto) 20 mg PO QAM #90 tabs 05/02/21 04/25/24 12/09/23 metoprolol succinate 100 mg 100 mg PO BID #60 tabs 11/01/21 04/25/24 12/09/23 08:00 tablet,extended release 24 hr levothyroxine 50 mcg tablet 50 mcg PO QAM #90 tabs 11/16/23 04/25/24 12/09/23 amoxicillin 500 mg tablet 2,000 mg (4 x 500 mg) PO ONCE PRN 02/06/24 04/25/24 Unknown IE prophylaxis #4 tabs pantoprazole 20 mg tablet,delayed 20 mg PO QAM #30 tabs 04/06/24 04/25/24 Unknown release Nutrofol 1 tab PO QAM 04/25/24 04/25/24 Unknown vit C 250 mg-vit E 90 mg-zinc 40 1 tab PO BID 04/25/24 04/25/24 Unknown mg-copper 1 yc-irmkyd-llworf capsule (PreserVision AREDS-2) vitamin A 2,400 mcg capsule 2,400 mcg PO DAILY 04/25/24 04/25/24 Unknown vitamin B complex 1 tab PO DAILY 04/25/24 04/25/24 Unknown vitamin E 268 mg (400 unit) capsule 268 mg PO DAILY 04/25/24 04/25/24 Unknown hydroxyzine HCl 25 mg tablet See Rx Instructions .Route 04/28/24 Unknown .COMPLEX #90 tabs duloxetine 20 mg capsule,delayed 20 mg PO BID #180 caps 04/29/24 Unknown release Past Medical History Medical History (Updated 04/30/24 @ 10:31 by Lorie Menendez PA-C) Anxiety and depression Atrial fibrillation Taking Xarelto Follows with [facility] cardiology Bilateral primary osteoarthritis of knee Chronic anticoagulation xarelto daily Dry eye syndrome GERD (gastroesophageal reflux disease) controlled, stable per pt Hiatal hernia History of COVID-19 (2021) no hosp; resolved History of fall (11/2023) trip and fall at home; no LOC; laceration to hand and forehead-denies additional falls Hyperlipidemia Hypothyroidism IBS (irritable bowel syndrome) Left knee DJD Prosthetic joint infection Right Sensorineural hearing loss (SNHL) of both ears Stress incontinence, female Patient denies h/o stroke, seizures, heart attack, heart failure, DM, HTN, blood clots/DVTs or blood transfusions. Exercise / Class Metabolic Activity II 4-5 Yardwork/Stairs/Walk up hill (shortness of breath with one flight of stairs ongoing x several years-denies change or worsening; denies chest discomfo rt) Past Family History Family History Brother Bladder cancer Grandmother (Maternal) Breast cancer Mother Cardiac disorder Other No family history of adverse response to anesthesia Denies family history of Ovarian cancer Prostate cancer Myocardial infarction Colorectal cancer Past Surgical History Surgical History (Updated 04/30/24 @ 08:27 by Lorie Menendez PA-C) H/O breast augmentation History of ankle surgery Left ankle fusion History of bilateral cataract extraction History of colonoscopy History of esophagogastroduodenoscopy (EGD) History of foot surgery Bone spur removal/plantar fascitis-patient unsure which side History of repair of left rotator cuff x2 History of repair of right rotator cuff History of total hysterectomy with bilateral salpingo-oophorectomy (BSO) Nausea and vomiting after administration of anesthetic agent denies needing scop patch S/P debridement Right knee s/p TKA Status post total right knee replacement Right TKA (04/08/21): SAB at L3/4 (x1 attempt) + PNB at [facility] Past Anesthesia History No Hx of Anesthesia Complications and No Family Hx of Anesthesia Complications History of PONV History of PONV (denies needing scop patch) and Hx of Motion Sickness Social History Smoking Status: Former smoker tobacco type: cigarettes Do You Dip or Chew Tobacco: No Smoking End Date: quit 40 yrs ago Hx Alcohol Use: No Hx Substance Use: No substance use type: does not use Review of Systems Snoring, denies witnessed apneas. Patient denies chest pain, fever, chills, cough, wheezing, or palpitations. Physical Exam Vital Signs Vitals BP 117/84 P 82 TEMP 98.0 SP02 97% on RA RESP 18 Physical Patient resting comfortably in chair in no acute distress, alert and oriented, responding appropriately throughout visit Full cervical extension range of motion without pain TMD 3.5 finger breadths Mallampati Score 3 Dentition: intact, denies chipped or loose teeth, caps/crowns, implants or bridges Lungs: normal respiratory effort. Good air movement, clear throughout to auscultation, no adventitious breath sounds Cardiac: regular rate and rhythm, no murmurs noted Carotid arteries: negative bruit bilat Lab Results Anesthesia Preop Results Results Anesthesia Widget: WBC 5.84 K/ul (4.8-10.8) 04/30/24 Hgb 13.5 g/dl (12.0-16.0) 04/30/24 Hct 41.3 % (37.0-47.0) 04/30/24 Plt 233 K/uL (130-400) 04/30/24 Na 139 mmol/L (136-145) 04/30/24 K 4.2 mmol/L (3.5-5.1) 04/30/24 Cl 105 mmol/L (98-107) 04/30/24 CO2 26 mmol/L (21-32) 04/30/24 BUN 19 mg/dl (6-23) 04/30/24 Creat 0.69 mg/dl (0.6-1.2) 04/30/24 Glucose Level 88 mg/dl (70-99(Fasting)) 04/30/24 PT 15.6 Seconds (9.0-12.0) H 04/30/24 PTT 40 Seconds (21-31) H 04/30/24 INR 1.5 (0.9-1.1) H 04/30/24 Blood Type O Positive 04/30/24 Antibody Screen NEGATIVE 04/30/24 Testing Electrocardiogram Date: 09/10/23 Afib, rate 87 bpm Rightward axis Chest X-Ray Date: 09/10/23 Mild enlargement of the cardiomediastinal silhouette. No acute pulmonary process. Echocardiogram Date: 08/15/21 EF 60-64% Afib with controlled ventricular response Normal LV wall motion Severely enlarged LA Mild mitral regurgitation Mild tricuspid regurgitation Other Testing Head CT 12/09/23 1. No acute intracranial abnormality. 2. Right frontal scalp swelling. 3. Fluid level within the right maxillary sinus suggestive of acute sinusitis.
--- NOTE | 2024-04-30 08:21 | PAT Medication Instructions ---
Medication Instructions Date of Service April 30, 2024 Home Medications Medication Instructions Recorded rivaroxaban 20 mg tablet (Xarelto) 20 mg PO QAM #90 tabs 05/02/21 metoprolol succinate 100 mg 100 mg PO BID #60 tabs 11/01/21 tablet,extended release 24 hr levothyroxine 50 mcg tablet 50 mcg PO QAM #90 tabs 11/16/23 amoxicillin 500 mg tablet 2,000 mg (4 x 500 mg) PO ONCE PRN 02/06/24 IE prophylaxis #4 tabs pantoprazole 20 mg tablet,delayed 20 mg PO QAM #30 tabs 04/06/24 release hydroxyzine HCl 25 mg tablet See Rx Instructions .Route 04/28/24 .COMPLEX #90 tabs duloxetine 20 mg capsule,delayed 20 mg PO BID #180 caps 04/29/24 release omega-3 acid ethyl esters 1 gram capsule 1 cap PO QAM rivaroxaban 20 mg tablet (Xarelto) 20 mg PO QAM metoprolol succinate 100 mg tablet,extended release 24 hr 100 mg PO BID levothyroxine 50 mcg tablet 50 mcg PO QAM amoxicillin 500 mg tablet 2,000 mg (4 x 500 mg) PO ONCE PRN pantoprazole 20 mg tablet,delayed release 20 mg PO QAM Nutrofol 1 tab PO QAM vit C 250 mg-vit E 90 mg-zinc 40 mg-copper 1 [id number]-tznblk capsule (PreserVision AREDS-2) 1 tab PO BID vitamin A 2,400 mcg capsule 2,400 mcg PO DAILY vitamin B complex 1 tab PO DAILY vitamin E 268 mg (400 unit) capsule 268 mg PO DAILY hydroxyzine HCl 25 mg tablet See Rx Instructions .Route .COMPLEX duloxetine 20 mg capsule,delayed release 20 mg PO BID Continue as directed hydroxyzine HCl 25 mg tablet See Rx Instructions .Route .COMPLEX amoxicillin 500 mg tablet 2,000 mg (4 x 500 mg) PO ONCE PRN(if needed) ASK your prescriber and surgeon rivaroxaban 20 mg tablet (Xarelto) 20 mg PO QAM(in order for spinal or epidural anesthesia, Xarelto needs to be stopped 72 hours/3 days before surgery. Please check if okay with doctor that prescribes this to you) STOP taking 2 weeks before surgery (or as soon as possible if surgery is within 2 weeks) omega-3 acid ethyl esters 1 gram capsule 1 cap PO QAM Nutrofol 1 tab PO QAM vit C 250 mg-vit E 90 mg-zinc 40 mg-copper 1 [id number]-gjhrqg-qtjcvm capsule (PreserVision AREDS-2) 1 tab PO BID vitamin A 2,400 mcg capsule 2,400 mcg PO DAILY vitamin B complex 1 tab PO DAILY vitamin E 268 mg (400 unit) capsule 268 mg PO DAILY Take morning of surgery With a small sip of water, OTHERWISE NOTHING TO EAT OR DRINK AFTER MIDNIGHT: metoprolol succinate 100 mg tablet,extended release 24 hr 100 mg PO BID levothyroxine 50 mcg tablet 50 mcg PO QAM pantoprazole 20 mg tablet,delayed release 20 mg PO QAM duloxetine 20 mg capsule,delayed release 20 mg PO BID Take evening before surgery metoprolol succinate 100 mg tablet,extended release 24 hr 100 mg PO BID duloxetine 20 mg capsule,delayed release 20 mg PO BID Other Notes If you have any questions please call us at [phone] or [phone] or [phone] or [phone]
--- NOTE | 2024-05-14 13:58 | History & Physical Report ---
Date of Service May 14, 2024 Assessment & Plan (1) Left knee DJD: 78-year-old female now 3 years out from a right total knee replacement complicated by acute postoperative infection with methicillin sensitive staph status post a Derra procedure with persistent progressive left knee pain unresponsive conservative care. She got advanced knee arthritis. She is failed conservative measures. The right knee infection seems to be cleared up without signs of problems and her knee is working well. That she like to proceed with left knee replacement. I think it safe to do that at this point. Plan: Josef taken the operating room and do a left total knee replacement. The risks Mente this procedure planed the patient include but not limited to a DVT PE infection neurological and vascular bleeding palm pain limb range of motion this is fairly her symptoms incomplete relief of symptoms need for f urther surgery in future excetra. The patient understands and desires to proceed informed consent was obtained. Due to her history Connie + vancomycin in the cement to try and mitigate her limit her likely get an infection. She will [facility]. Will use Xarelto for DVT prophylaxis she is on that for A-fib. She will need to hold that 3 days preop. (2) Status post right knee replacement: History of Present Illness Chief Complaint: . Persistent left knee pain. Primary Care Provider: Brian Marcelo MD . The patient is a 78-year-old female well-known to me from a previous right knee replacement done in the in March 2021. As she did well in the immediate postoperative period and then about 3 months postop developed an acute onset of infection. She underwent a formal irrigation and debridement and Derra procedure. As she was on no suppressive antibiotics for quite some time. She has continued to improve from this time. As she is asymptomatic in this left knee. She has been off the antibiotics for over a year without any residual sequelae or signs of symptoms or swelling or infection. Unfortunately she has continued to have persistent and progressive right knee pain and disc onset left knee pain and discomfort. Has been through multiple evaluations by myself as well as at [facility] and [facility]. That she now like to proceed with a left knee replacement. We did schedule her almost a year ago but she decided to go elsewhere and get another opinion but now comes back for us to do it. Pains become more debilitating. She would like to have her knee fixed. The right knee is doing well. Allergies Allergy/AdvReac Type Severity Reaction Status Date / Time meperidine AdvReac Intermediate Nausea Verified 04/30/24 10:33 morphine AdvReac Intermediate Nausea Verified 04/30/24 10:33 Home Medications Medication Instructions Recorded Confirmed Type omega-3 acid ethyl esters 1 gram 1 cap PO QAM 05/19/19 04/25/24 History capsule rivaroxaban 20 mg tablet (Xarelto) 20 mg PO QAM #90 tabs 05/02/21 04/25/24 Rx metoprolol succinate 100 mg 100 mg PO BID #60 tabs 11/01/21 04/25/24 Rx tablet,extended release 24 hr levothyroxine 50 mcg tablet 50 mcg PO QAM #90 tabs 11/16/23 04/25/24 Rx amoxicillin 500 mg tablet 2,000 mg (4 x 500 mg) PO ONCE PRN 02/06/24 04/25/24 Rx IE prophylaxis #4 tabs pantoprazole 20 mg tablet,delayed 20 mg PO QAM #30 tabs 04/06/24 04/25/24 Rx release Nutrofol 1 tab PO QAM 04/25/24 04/25/24 History vit C 250 mg-vit E 90 mg-zinc 40 1 tab PO BID 04/25/24 04/25/24 History mg-copper 1 [id number] capsule (PreserVision AREDS-2) vitamin A 2,400 mcg capsule 2,400 mcg PO DAILY 04/25/24 04/25/24 History vitamin B complex 1 tab PO DAILY 04/25/24 04/25/24 History vitamin E 268 mg (400 unit) capsule 268 mg PO DAILY 04/25/24 04/25/24 History hydroxyzine HCl 25 mg tablet See Rx Instructions .Route 04/28/24 Rx .COMPLEX #90 tabs duloxetine 20 mg capsule,delayed 20 mg PO BID #180 caps 04/29/24 Rx release Past Med/Surg History Problem List Encounter for pre-operative examination Balance problems due to knee dysfunction Gluten intolerance Left knee DJD Health care maintenance Status post right knee replacement Hypertension Brittle nails Vitamin D deficiency disease Sensorineural hearing loss of both ears GERD (gastroesophageal reflux disease) Osteoarthritis of ankle and foot (Acute) Signs and symptoms involving cognition (Acute) Stress incontinence, female (Acute) Sleep disturbances (Acute) Permanent atrial fibrillation (Acute) Taking Xarelto Follows with [facility] Neck pain (Acute) Chronic Internal hemorrhoids (Acute) Hypothyroidism (Acute) Hyperlipidemia (Acute) Depression (Acute) Chronic anticoagulation (Acute) xarelto daily Medical History History of fall (11/2023) trip and fall at home; no LOC; laceration to hand and forehead-denies additional falls Sensorineural hearing loss (SNHL) of both ears Chronic anticoagulation xarelto daily History of COVID-19 (2021) no hosp; resolved Hypothyroidism Hyperlipidemia Atrial fibrillation Taking Xarelto Follows with [facility] IBS (irritable bowel syndrome) Dry eye syndrome Anxiety and depression Prosthetic joint infection Right Left knee DJD Stress incontinence, female Bilateral primary osteoarthritis of knee GERD (gastroesophageal reflux disease) controlled, stable per pt Hiatal hernia Surgical History Nausea and vomiting after administration of anesthetic agent denies needing scop patch S/P debridement Right knee s/p TKA H/O breast augmentation Status post total right knee replacement Right TKA (04/08/21): SAB at L3/4 (x1 attempt) + PNB at [facility] History of total hysterectomy with bilateral salpingo-oophorectomy (BSO) History of ankle surgery Left ankle fusion History of foot surgery Bone spur removal/plantar fascitis-patient unsure which side History of repair of right rotator cuff History of repair of left rotator cuff x2 History of colonoscopy History of esophagogastroduodenoscopy (EGD) History of bilateral cataract extraction Family History Brother Bladder cancer Grandmother (Maternal) Breast cancer Mother Cardiac disorder Other No family history of adverse response to anesthesia Denies family history of Ovarian cancer Prostate cancer Myocardial infarction Colorectal cancer Social History Smoking Status: Former smoker Tobacco Type: Cigarettes Second Hand Exposure: No; Do You Dip or Chew Tobacco: No; Hx Alcohol Use: No Hx Substance Use: No Preferred Language: Yoruba Communication Ability: Effective Visual Impairment: No Limitations Hearing Ability: Normal Wage Conciliator Required: No Beliefs That Will Affect Care: None marital status: Current Living Situation: Spouse current occupational status: retired Feels Safe at Home: Yes Childhood Exposure to Second-Hand Smoke: Yes Dental Care, Regularly: Yes Physical Activity Frequency: Daily Seatbelt Use: always Sunscreen Use: Yes Assistive Devices: Glasses Review of Systems All systems reviewed & are unremarkable except as noted in HPI & below. Physical Exam . Physical examination reveals a pleasant spry female looks younger than her stated age. Examination of both knees reveals patient ambulates independently. Examination of the left knee reveals varus alignment to her knee. A little bit of varus thrust with weightbearing. She is tender with medial joint line. Small knee effusion. Range of motion about 10 degrees show full extension to 115 degrees of flexion. No particular pain with hip motion. She got bony hypertrophy medially. Examination the right knee reveals well-healed incision. There is no swelling. Range of motion 0-1 05. No instability. She does have some stiffness in flexion. Constitutional WD/WN, vitals as above Neck trachea midline, no thyromegaly Respiratory normal respiratory effort, lungs clear to auscultation Cardiovascular RRR, no murmur, no edema Gastrointestinal (Abdomen) normal bowel sounds, soft, nontender, no hepatosplenomegaly Results & Data Results & Data Laboratory Results . Most recent laboratory results on April 25 of this year were reviewed. That shows a normal white cell count. Sed rate is normal at 11 and there is CRP is less than 0.50. INR is 1.5. Diagnostic Findings . X-rays of both knees were reviewed. The x-rays of the left knee reveal advanced left knee arthritis. She got complete loss of the medial joint space. She gets chondrocalcinosis laterally. She has subchondral sclerosis. Trays of the right knee reveal well-positioned right knee replacement. There is no signs of problems. No signs of bone destruction loosening or osteolysis. PG Care Time/CCT Total # of Minutes Spent Total Time Spent with Patient: Total time spent is greater than 50% in coordination of care (as documented) at patient's floor/unit and/or counseling patient: Coding Level of Care Code None Diagnoses Left knee DJD M17.12 Status post right knee replacement Z96.651
[2024-05-30] MEDS ORDERED: ROPIVACAINE 0.5% 5 MG/ML 30 ML VIAL ONE (06:31)
--- NOTE | 2024-05-30 06:42 | History & Physical Bridge Note ---
Date of Service May 30, 2024 History & Physical Bridge Note I have examined the patient, reviewed the History & Physical and in the interval since the performance of the History & Physical I have noted the following changes of clinical significance: no changes noted
[2024-05-30] MEDS: ACETAMINOPHEN 500 MG TAB PO SCH ×2 (07:00→13:24)
[2024-05-30] MEDS: LR 500ML BOLUS, THEN 15ML/HR IV SCH (07:00)
[2024-05-30] MEDS: METOCLOPRAMIDE HCL 10 MG TABLET PO SCH (07:01)
[2024-05-30] MEDS: LR 60ML/HR IV SCH (07:01)
[2024-05-30] MEDS: FAMOTIDINE 20 MG TAB PO SCH (07:01)
[2024-05-30] MEDS: dexAMETHasone**PF** 10 MG/ML VIAL IV SCH (07:01)
[2024-05-30] MEDS: CeleBREX 200 MG CAP PO SCH (07:01)
[2024-05-30] MEDS ORDERED: MIDAZOLAM HCL 1 MG/ML 2ML VIAL ONE ×2 (07:46→07:51)
[2024-05-30] MEDS ORDERED: ePHEDrine sulfate 50 MG/ML AMP IV PRN (08:05)
[2024-05-30] MEDS ORDERED: fentaNYL citrate PF 100 MCG/2 ML VIAL IV PRN (08:05)
[2024-05-30] MEDS ORDERED: ATROPINE SULFATE 0.1 MG/ML 10ML SYR IV PRN (08:05)
[2024-05-30] MEDS ORDERED: ONDANSETRON INJ 2 MG/ML 2 ML VIAL IV PRN ×2 (08:05→12:21)
[2024-05-30] MEDS ORDERED: KETOROLAC 30 MG/ML VIAL IV PRN (08:05)
[2024-05-30] MEDS ORDERED: PROMETHAZINE HCL 6.25 MG in SODIUM CHLORIDE 0.9% 50 ML IV PRN (08:07)
[2024-05-30] MEDS: ceFAZolin 2000MG 2,000 MG/15 ML SYR IV SCH (09:17)
[2024-05-30] MEDS ORDERED: ONDANSETRON INJ 2 MG/ML 2 ML VIAL ONE (09:23)
[2024-05-30] MEDS ORDERED: PROPOFOL IV EMULSION 10 MG/ML 20 ML VIAL IV ONE (09:23)
[2024-05-30] MEDS: ORTHO JOINT ANESTHETIC ONE (09:50)
[2024-05-30] MEDS: TRANEXAMIC ACID 1,000 MG **IV Intra-op IV SCH (10:05)
[2024-05-30] MEDS: VANCOMYCIN HCL 1000MG/20ML VIAL ONE (10:09)
[2024-05-30] MEDS: ROPIV 0.5% 246mg, Ketorolac 30mg, EPINEPHrine 0.5mg in NSS INFIL SCH (10:09)
--- NOTE | 2024-05-30 11:04 | Operative Report ---
PG Post Operative Report Pre & Post Diagnosis Operation Date: 05/30/24 08:30 Pre-Op Diagnosis: Left Knee Degenerative Joint Disease Post-Op Diagnosis: Left Knee Degenerative Joint Disease I identified the patient and participated in the time-out.: Yes Procedure Operation Date: 05/30/24 08:30 Actual Procedures p Left Total Knee Arthroplasty(Left) - Krishna Doe MD Surgeon Krishna Doe MD City Detective Riaz Zhang PA-C Estimated Blood Loss 50 Findings Consistent with Post-Op Diagnosis Operative findings were advanced left knee DJD. She had extensive grade 4 [id number] disease the entire femoral and tibial medial compartments. She did have some spotty grade 4 changes of the lateral femoral condyle as well as patellofemoral joint. Moderate-sized joint effusion. Specimens Left knee sent for pathology. Anesthesia Type Spinal MAC Complications none Disposition Accompanied Patient To Recovery: No Indications The patient is a 78-year-old female is had a long history of knee problems of an arthritis. She failed all conservative measures. She did have a right knee replaced about 3 years ago. This was complicated by a postoperative methicillin-sensitive staph infection 3 months postop. She underwent I&D and poly exchange and was treated. She been off antibiotics for over a year without any signs of recurrence. She continues to bothered by left knee pain. She failed all conservative measures. X-rays show advanced left knee arthritis. She elected proceed with total knee arthroplasty. We did place an additional gram of vancomycin in her cement. Description of Procedure Operative implants consist of: 1 Biomet Vanguard size 60 left posterior stabilized femoral component. 2. Biomet size 63 tibial tray. 3. 10 mm posterior stabilized polyethylene insert. 4. 28 x 8 all poly patella. The patient was taken the op room, identified, placed on the operating table in the supine position. All contact areas were appropriately padded. IV antibiotics tried by anesthesia team. A spinal anesthetic and adductor canal block had been provided in the holding area. A Pryor catheter was placed in sterile fashion. A left IJ was then placed. The left lower extremity was then prepped and draped in usual sterile fashion. The left leg was elevated and exsanguinated with use of an Esmarch and tourniquet placed at 300 mmHg. An anterior approach to the left knee was then performed to longitudinal incision centered over the patella. Sharp dissection scalp through subcutaneous tissue down the extensor mechanism. A medial parapatellar arthrotomy incision was made. Some subperiosteal dissection was carried out medially. The fat pad was resected from Neath patella tendon. The lateral patellofemoral ligament was released. Patella subluxated laterally and the knee was flexed. The osteophytes taken off distal femur. The ACL and PCL were then released from the distal femur and the tibia subluxated anteriorly. The external tibial alignment jig was placed on the anterior face of the tibia and adjusted 14 mm medially. Proximal tibial cut was made to remove an additional 3 mm of bone off distal femur. The femur was then sized to a size 60. We did downsize this slightly. The AP cutting block was pinned parallel to the epicondylar axis which was 4 degrees of external rotation. The anterior cut, anterior chamfer, posterior cut, posterior chamfer cuts were made. The box cutting guide was placed in the just slight lateral and the box cut was made. The knee was flexed. The remnants of the medial and lateral menisci were excised. The osteophytes were taken off the posterior aspect the femur. A trial femoral component was placed. The tibial tray was pinned Yaima external rotation and the drill and stem punch were used to create defect in proximal tibia for the tibial tray. The knee was then trialed and the 10 mm insert fit most appropriately. Attention drawn the patella. The patella was cleaned of all soft tissues. Patella thickness measured about 23 mm in thickness was cut down to 14. Was sized to a size 28 patella. The locals were drilled for the 28 patella. The lateral osteophyte was removed. Patella button was placed. Knee was taken through range of motion patella tracked nicely with no thumbs test. Attention drawn to placing the permanent components. All trial components were removed. Bone plug was placed into this femur limit blood loss. A double batch Palacos G cement was mixed with an additional gram of vancomycin. A Biomet Vanguard size 60 left posterior Byce femoral component, size 63 tibial tray, 10 mm posterior Byce polyethylene insert, and a 28 x 8 all poly patella then cemented in place. The knee was brought out into full extension till cement hardened. Final cement check was then performed. The pericapsular tissues were injected with a total of 100 cc of Ortho mix. The patient did receive 1 g tranexamic acid. The tourniquet was then let down for final turn time 55 minutes. Hemostasis assured use electrocautery. Extensor Meclomen closed with combination 1 PDS suture #1 Vicryl suture in a [id number] fashion. Extensor Meclomen checked found to be intact and subcutaneous tissue then closed with 2 Dexon suture in a buried interrupted fashion skin was closed skin sivakumar. Leg was then cleaned and dried and a sterile dressing with Xeroform, 4 fours, sterile ABD pad, sterile cast padding, Anurag bandage were applied. Patient then transferred to the recovery room in stable condition. Patient tolerated procedure well and there were no compli cations. Riaz Zhang, my physician senior agricultural assistant, was present for the entire procedure. His assistance was essential and required for appropriate patient positioning, prepping and draping, surgical exposure, performing the technical details of the operation, placement the implants, closure of the wound, and placement of the sterile bandage. I attest to the content of the Intraoperative Record and any orders documented therein. Any exceptions are noted below.
--- NOTE | 2024-05-30 11:39 | XRay Report ---
TWO VIEWS LEFT KNEE CLINICAL HISTORY: Postoperative examination. FINDINGS: AP and crosstable lateral portable views of the left knee are obtained. A left knee arthrop lasty is in near anatomic alignment. There has been undersurface remodeling of the patella. No acute fracture is seen. There are expected postoperative changes around the knee including skin clips, soft tissue edema, and subcutaneous gas. IMPRESSION: Expected postoperative changes status post left knee arthroplasty. No acute fracture is s een. ACT 112: Negative or not required by law. Electronically signed by: Abhijeet Barrera M.D. 05/30/2024 11:38 AM
[2024-05-30] MEDS ORDERED: bisacodyL 10 MG SUPP PR PRN (12:21)
[2024-05-30] MEDS ORDERED: HYDROmorphone INJ 0.5 MG/0.5 ML SYR IV PRN (12:21)
[2024-05-30] MEDS ORDERED: ALUMINUM/MAGNESIUM SUSP 30 ML UDC PO PRN (12:21)
[2024-05-30] MEDS ORDERED: NALOXONE HCL 0.4 MG/1 ML VIAL/CARP IV PRN (12:21)
[2024-05-30] MEDS ORDERED: MAGNESIUM HYDROXIDE SUSP 30 ML UDC PO PRN (12:21)
[2024-05-30] MEDS ORDERED: METOCLOPRAMIDE HCL INJ 5 MG/ML 2 ML VIAL IV PRN (12:21)
[2024-05-30] MEDS: SODIUM CHLORIDE 0.9% 1,000 ML IV SCH (13:01)
[2024-05-30] MEDS: KETOROLAC TROMETHAMINE 15 MG/ML VIAL IV SCH (13:25)
--- NOTE | 2024-05-30 13:52 | Anesthesiology Progress Note ---
Date of Service May 30, 2024 Anesthesia Post Procedure Vital Signs Vital Signs: Temp Pulse Pulse Resp BP BP Pulse Ox 05/30/24 13:39 37.1 C 105 H 18 115/83 94 05/30/24 12:57 36.8 C 99 H 18 110/82 96 05/30/24 12:36 37.0 C 86 16 128/90 98 05/30/24 12:05 87 14 128/88 97 05/30/24 11:55 88 13 134/98 97 05/30/24 11:45 90 12 144/102 H 96 05/30/24 11:35 36.6 C 93 H 19 137/96 98 05/30/24 11:25 94 H 15 139/94 97 05/30/24 11:15 94 H 14 141/82 H 97 05/30/24 11:05 94 H 22 141/101 H 94 05/30/24 10:59 36 C L 98 H 14 134/81 100 05/30/24 07:18 36.7 C 67 20 136/95 97 O2 Del Method O2 Flow Rate 05/30/24 13:39 Room Air 05/30/24 12:57 Room Air 05/30/24 12:36 Room Air 05/30/24 12:05 Room Air 05/30/24 11:55 Room Air 05/30/24 11:45 Room Air 05/30/24 11:35 Room Air 05/30/24 11:25 Room Air 05/30/24 11:15 Room Air 05/30/24 11:05 Room Air 05/30/24 10:59 Oxymask 6 05/30/24 07:18 Room Air Transfer of Care Handoff Completed per policy Notes Mental Status: alert / awake / arousable Patient Amnestic to Procedure: Yes Nausea / Vomiting: adequately controlled Pain: adequately controlled Airway Patency, RR, SpO2: stable & adequate BP & HR: stable & adequate Hydration State: stable & adequate Neuraxial Anesthesia: was administered and sensory block is resolving Anesthetic Complications: no major complications apparent
[2024-05-30] MEDS: ASCORBIC ACID 500 MG TAB PO SCH (17:38)
[2024-05-30] MEDS: ceFAZolin 1000MG 1,000 MG/7.5 ML SYR IV SCH (17:47)
[2024-05-30] MEDS: TRANEXAMIC ACID / 0.7% NACL 1,000 MG/100 ML BAG IV SCH (17:53)
[2024-05-30] MEDS: SENNA 8.6 MG TAB PO SCH ×2 (20:06→20:07)
[2024-05-30] MEDS: DOCUSATE SODIUM 100 MG CAP PO SCH (20:06)
[2024-05-30] MEDS: METOPROLOL SUCC 50MG EXT REL TAB PO SCH (20:07)
[2024-05-30] MEDS: DULoxetine HCL 20 MG CAP PO SCH (20:07)
[2024-05-30] MEDS ORDERED: NON-FORMULARY MEDICATION (Vit C,E-Zn-Coppr-Lutein-Zeaxan [Preservision Areds-2] 250-90-40- PO SCH (21:00)
[2024-05-30] MEDS: oxyCODONE HCL IR 5 MG TAB (IMMEDIATE RELEASE) PO PRN (22:06)
[2024-05-31 03:25] VITALS: O2SAT 94
[2024-05-31] MEDS: LEVOTHYROXINE SODIUM 50 MCG TABLET PO SCH (06:04)
[2024-05-31 06:33] LABS: Hematocrit (blood only) 32.9 % (37.0-47.0); Mean Corpuscular Hemoglobin 30.6 pg (25.0-34.0); Mean Corpuscular Hgb Conc 33.4 g/dL (32.0-36.0); Mean Corpuscular Volume 91.6 fL (80.0-100.0); Platelet Count 181 K/uL (130-400); RDW Coefficient of Variation 13.6 % (11.5-14.5); RDW Standard Deviation 46.4 fL (36.4-46.3); Red Blood Count 3.59 M/uL (4.20-5.40); White Blood Count 10.63 K/ul (4.8-10.8)
[2024-05-31 06:49] LABS: BUN Creatinine Ratio 25.6 (10-20); Calcium 8.5 mg/dl (8.6-10.3); Creatinine Clr Calc Pharmacy 44.9 ml/min; Est GFR (African American) 84.4 ml/min; Est GFR (Non-African American) 72.8 ml/min; Potassium 4.1 mmol/L (3.5-5.1)
--- NOTE | 2024-05-31 07:31 | Orthopedic Progress Note ---
Date of Service May 31, 2024 Assessment & Plan (1) Status post left knee replacement: Plan: 78-year-old female postop day 1 from left knee replacement doing quite well. Pains controlled. She is neurologically intact. Plan: 1. DVT prophylaxis including Thiede teds, SCDs, and back on Xarelto. Will put on a prophylactic dose today and can resume her normal dose tomorrow. 2. PT/OT. Weight-bear as tolerated. Left total knee protocol. 3. Pain control doing okay with current pain regimen. 4. Disposition plan to discharge to home with some home health if she does okay in therapy today. (2) Status post right knee replacement: (3) Permanent atrial fibrillation: Admission and Anticipated Discharge Date Admission Date: May 30, 2024 Subjective 78-year-old female postop day 1 from left knee replacement. She is doing well. Had a pretty good night. Really not having much pain at all. No chest pain or shortness of breath. Not feeling dizzy or lightheaded. Hoping to go home today. Physical Exam Physical Exam: Physical examination is a pleasant middle-age female. As she is sitting up in bed looks pretty comfortable. Examination of the left leg reveals the leg to be well aligned. Dressings clean dry and intact. She can dorsiflex and plantarflex her foot appropriately. She can do a good straight leg raise. Respiratory: normal respiratory effort, lungs clear to auscultation Cardiovascular: RRR, no murmur, no edema Gastrointestinal (Abdomen): normal bowel sounds, soft, nontender, no hepatosplenomegaly Results & Data Vital Signs (Past 12 Hours) Vital Signs Temp Pulse Pulse Resp BP Pulse Ox O2 Del Method 05/31/24 03:20 36.9 C 74 14 122/80 94 Room Air 05/30/24 23:13 36.9 C 87 14 117/80 96 Room Air 05/30/24 20:04 99 H 113/70 05/30/24 19:35 36.7 C 100 H 16 118/77 96 Room Air Laboratory Results Hemoglobin is 11.0. Hematocrit is 32.9. Electrolytes are stable.
[2024-05-31 07:58] VITALS: BP 125/78; PULSE 78; RESP 20; TEMP 97.7
[2024-05-31] MEDS: TOCOPHERYL, DL-ALPHA 400 UNITS 180 MG CAP PO SCH (08:49)
[2024-05-31] MEDS: OMEGA-3 (PURIFIED FISH OIL) 1 GM CAP PO SCH (08:49)
[2024-05-31] MEDS: VITAMIN B COMPLEX TAB PO SCH (08:49)
[2024-05-31] MEDS: MULTIVITAMIN TAB PO SCH (08:49)
[2024-05-31] MEDS: PANTOprazole 40 MG TAB PO SCH (08:50)
[2024-05-31] MEDS: dexAMETHasone 10 MG in SYRINGE 0 ML IV SCH (08:53)
[2024-05-31] MEDS ORDERED: NON-FORMULARY MEDICATION (Vitamin A 2,400 mcg Capsule) PO SCH (09:00)
[2024-05-31] MEDS ORDERED: [UNRECOGNIZED DRUG - OTHER] PO SCH (09:00)
[2024-05-31] MEDS: RIVAROXABAN 10 MG TABLET PO SCH (10:41)
== END 2024-05-31 12:18 | disposition home health service (06) ==
LOC: ASU 06:28 → 3E 06:28